=== PATIENT | male | born 2000 | race Two or more races ===

== ENCOUNTER → 2020-05-03 08:58 | Outpatient (BNVA) | payer OTHER, SELFPAY | PROVIDERS: PCP Physician Assistant; Referring Provider Physician Assistant; Visit Provider Dietitian, Registered | DX: Z76.89 Persons encountering health services in other specified circumstances (principal) ==

== ENCOUNTER 2020-06-14 17:36 | Emergency (ER) | payer OTHER, SELFPAY ==
--- NOTE | 2020-06-14 | XR_ITS ---
EXAMINATION: XR HAND, RIGHT CLINICAL INFORMATION: Question of glass foreign body in the fourth and fifth digit. Laceration. COMPARISON: None TECHNIQUE: PA, lateral, and oblique views of the right hand. FINDINGS: No radiopaque foreign body. The bones and soft tissues are normal. No fracture. Alignment is anatomic. Joint spaces are maintained. No erosions or soft tissue calcifications. XR/XR hand RT min 3V IMPRESSION: Normal right hand. There is no radiopaque foreign body.
[2020-06-14 17:41] VITALS: BP 128/70; PULSE 93; RESP 17; TEMP 36.6; O2SAT 96; BMI 39.5
--- NOTE | 2020-06-14 19:48 | ED.WOUNDLAC ---
HPI - Wound/Laceration General Chief Complaint: Wound/Laceration Stated Complaint: Finger lac Time Seen by Provider: 06/14/20 18:35 Source: patient Mode of arrival: ambulatory Limitations: no limitations History of Present Illness HPI narrative: States he was helping friend move a fish tank and cut the right 4th in finger on the edge of the fasting. Up-to-date on his tetanus vaccination which he got last year. Onset (ago): minute(s) Extremity Location: right: wrist (Fourth and 5th finger) Associated symptoms: pain Treatments prior to arrival: bandage Related Data Home Medications Medication Instructions Recorded Confirmed blood sugar diagnostic #10 ea 04/23/20 06/05/20 lancets 28 gauge #100 ea 04/23/20 06/05/20 metformin 1,000 mg tablet 1,000 mg PO BID 04/23/20 06/05/20 Previous Rx's Medication Instructions Recorded dulaglutide 1.5 mg/0.5 mL 1.5 mg SUBCUT QWEEK 28 Days #2 ml 04/23/20 subcutaneous pen injector flash glucose sensor #2 ea 04/23/20 insulin glargine 100 unit/mL (3 12 unit SUBCUT QPM 30 Days #3.6 ml 04/23/20 mL) subcutaneous pen pen needle, diabetic 32 gauge x #30 ea 05/03/20 ketoconazole 2 % topical cream 1 appl TOPICAL DAILY 30 Days #30 g 06/05/20 Allergies Allergy/AdvReac Type Severity Reaction Status Date / Time No Known Allergies Allergy Verified 06/14/20 17:41 [No Known Allergies*] Review of Systems Review of Systems: Constitutional: No Weight loss, No Fever, No Chills, No Night Sweats ENT/Mouth: No Hearing loss, No Ear Pain, No Nasal Congestion, No Sinus Pain, No Hoarseness, No sore throat Eyes: No Eye Pain, No Swelling, No Redness, No Foreign Body Cardiovascular: No Chest Pain, No SOB, No Dyspnea on Exertion, No Orthopnea, No Edema, No Palpitations Respiratory: No Cough, No Sputum, No Wheezing, No Smoke Exposure, No Dyspnea Gastrointestinal: No abdominal Pain Genitourinary: No Dysuria, No Urinary Frequency Musculoskeletal: No joint pain, No Myalgias, No Joint Swelling Skin: No Skin Lesions, No rash, as noted in HPI Neuro: No Weakness, no numbness, No Dizziness, No Headache Psych: No Social Issues Heme/Lymph: No Bruising, No Bleeding,No Lymphadenopathy Endocrine: No Polyuria, No Polydipsia, No Temperature Intolerance Yes all other systems are reviewed and are negative [facility] Past Medical History Medical History (Updated 06/14/20 @ 19:50 by Jonathan Frye NP) Adult BMI 40.0-44.9 kg/sq m Asthma, exercise induced Balanitis Morbid obesity due to excess calories Other obsessive-compulsive disorder Type 2 diabetes mellitus with hyperglycemia Surgical History (Updated 05/28/20 @ 08:04 by ROMELIA Esposito) No pertinent past surgical history Family History Family History Father No problems noted. Mother Diabetes mellitus Paternal Grandmother Diabetes mellitus Maternal Grandfather Diabetes mellitus Social History Social History Alcohol intake: never Smoking Status: Never smoker Smoked in Last 30 Days: No Use of substances other than those prescribed or required for medical reasons: No Advance Directives: No Advance Directives Information Provided: Yes Physical Exam Vital Signs: Vital Signs: Last Vital Signs Temp 98 F 06/14/20 17:41 Pulse 93 06/14/20 17:41 Resp 17 06/14/20 17:41 BP 128/70 06/14/20 17:41 Pulse Ox 96 06/14/20 17:41 Body Mass Index 39.5 Reviewed Const: General: cooperative and healthy appearing; No acute distress or intoxicated appearing Nutritional Appearance: average body habitus Orientation/consciousness: patient oriented x3 Chest: Chest palpation & inspection: normal inspection of the chest Resp: Effort & Inspection: normal respiratory effort Cardio: Jugular venous distension: no JVD Skin: General skin exam: no rashes or lesions noted Neuro: General: patient oriented x3 Extrem: General: Yes normal to inspection Hand/finger images: 1. 1.5 cm superficial laceration just to the adipose tissue. He is able to make a fist, flex/extend adduct and abduct fully. Neurovascularly intact. 2. Very superficial skin flap. Procedures Laceration Laceration 1: Site: other (Right 5th finger) Side (If applicable): right Size (cm): 1.5 Description: linear Depth: simple, single layer Local Anesthetic: lidocaine 1% Amount of anesthesia used (mL): 5 Pre-repair: wound explored Skin layer closed with: nylon Size (cm): 5-0 Number of sutures: 4 Technique: simple, interrupted Laceration 2: Side (If applicable): right Size (cm): 0.5 Description: flap Depth: simple, single layer Local Anesthetic: lidocaine 1% Amount of anesthesia used (mL): 2 Pre-repair: wound explored Skin layer closed with: nylon Size (cm): 5-0 Number of sutures: 1 Technique: simple, interrupted Subcutaneous layer closed with: chromic gut Size: 5-0 Number of sutures: 1 Technique: simple, interrupted MDM - Wound/Laceration Differential Diagnosis Differential diagnosis: Likely laceration, abrasion and avulsion of skin Medical Records Attestation: I reviewed the patient's medical records. Lab Data Attestation: I reviewed the patient's lab results. Discharge Plan Discharge Clinical Impression: Finger laceration Patient Disposition: Home, Self-Care Instructions: Finger Laceration (ED) Additional Instructions: Today you were evaluated for the laceration to the right 4th and 5th finger requiring localize number medication and suture repair Use finger splint for comfort And to mobilize the finger to allow further healing Keep site clean and dry for the 1st 48 hours and after you can wash with soap and water but do not submerge underwater Monitor for any signs of infection including redness, swelling, discharge, pain, fever if any these present returns emergency room right away otherwise return in 7 days for suture removal Thank you Prescriptions: No Action ketoconazole 2 % cream 1 appl topical DAILY 30 Days Qty: 30 RF: 1 (DME) pen needle, diabetic [BD Ultra-Fine Raegan Pen Needle] 32 gauge x 5/32 needle See Rx Instructions .ROUTE .MEDSUPPLY Qty: 30 RF: 11 (DME) FreeStyle Precision Peter Strips Strip See Rx Instructions strip .ROUTE .MEDSUPPLY Qty: 10 RF: 0 metformin 1,000 mg tablet 1,000 mg PO BID RF: 0 (DME) lancets 28 gauge misc See Rx Instructions lancet topical TID Qty: 100 RF: 0 Trulicity 1.5 mg/0.5 mL pen injector 1.5 mg subcut QWEEK 28 Days Qty: 2 RF: 2 (DME) FreeStyle Roe 14 Day Sensor Kit See Rx Instructions .ROUTE .MEDSUPPLY Qty: 2 RF: 11 Basaglar KwikPen U-100 Insulin 100 unit/mL (3 mL) insulin pen 12 unit subcut QPM 30 Days Qty: 3.6 RF: 3 Referrals: Eduardo Sheldon PA-C [Primary Care Provider] - 1 week (Suture removal) Jonathan Frye NP [Emergency Midlevel Provider] - 1 week (Suture removal)
[2020-06-14] MEDS: Lidocaine HCl 1 % MPF 5 ML VIAL 10 ML SUBCUT (20:01)
--- NOTE | 2020-06-14 20:06 | PC.NURSE ---
PT LAC TO RIGHT FINGER CLEANED AND SUTURED PER JUANITA FRIEDMAN. DSD APPLIED WITH FINGER SPLINT.
== END 2020-06-14 20:05 | disposition home or self-care (01) ==
PROVIDERS: Emergency Provider Internal Medicine; PCP Physician Assistant
DX: S61.214A Laceration without foreign body of right ring finger without damage to nail, initial encounter (principal); M79.644 Pain in right finger(s); W26.9XXA Contact with unspecified sharp object(s), initial encounter; Y93.9 Activity, unspecified; Y92.009 Unspecified place in unspecified non-institutional (private) residence as the place of occurrence of the external cause; Y99.9 Unspecified external cause status; Z79.899 Other long term (current) drug therapy
CPT/HCPCS: 12001; 73130; 99284

== ENCOUNTER → 2020-07-19 09:42 | Outpatient (BNVA) | payer OTHER, SELFPAY | PROVIDERS: PCP Physician Assistant; Visit Provider Nurse Practitioner Gerontology | DX: E11.65 Type 2 diabetes mellitus with hyperglycemia (principal); Z79.4 Long term (current) use of insulin; E66.01 Morbid (severe) obesity due to excess calories; Z68.41 Body mass index [BMI] 40.0-44.9, adult | CPT/HCPCS: 82947; 99212 ==

== ENCOUNTER 2021-01-03 07:36 | Outpatient (REF) | payer OTHER, SELFPAY ==
[2021-01-03 09:36] LABS: Hematocrit 43.9 % (42-52); Hemoglobin 14.1 g/dl (14.0-18.0); Mean Corpuscular HGB Conc 32.1 g/dl (31.0-36.0); Mean Corpuscular Hemoglobin 30.7 pg (27.0-33.0); Mean Corpuscular Volume 95.4 fL (80-98); Mean Platelet Volume 12.5 fL (9.4-12.4); Platelet Count 204 X10*3/uL (160-400); Red Cell Distribution Width 12.7 % (11.0-16.0); White Blood Count 8.9 X10*3/uL (4.8-10.8)
[2021-01-03 10:18] LABS: Alanine Aminotransferase 25 U/L (0-40); Albumin Level 4.3 g/dL (3.5-5.0); Alkaline Phosphatase 69 U/L (39-117); Anion Gap 12 (12-20); Aspartate Amino Transferase 22 U/L (5-37); Bilirubin Total 0.8 mg/dL (0.0-1.0); Blood Urea Nitrogen 20 mg/dL (9-16); Calcium 9.3 mg/dL (8.4-10.2); Carbon Dioxide 27 mmol/L (22-29); Chloride 106 mmol/L (96-108); Cholesterol 141 mg/dL; Estimated Glomerular Filt Rate > 60; Glucose Fasting 214 mg/dL (60-99); HDL Cholesterol 51 mg/dL; LDL Cholesterol Calculated 80 mg/dl; Potassium 4.5 mmol/L (3.3-5.1); Sodium 140 mmol/L (135-145); Total Protein 6.8 g/dL (6.5-8.0); Triglycerides 54 mg/dL
[2021-01-03 10:29] LABS: TSH reflex Free T4 0.68 uIU/mL (0.32-4.0)
== END 2021-01-03 07:37 | disposition home or self-care (01) ==
LOC: HO.LAB 07:36
PROVIDERS: Absent Provider Physician Assistant; PCP Physician Assistant; Visit Provider Nurse Practitioner Gerontology
DX: E11.65 Type 2 diabetes mellitus with hyperglycemia (principal); E66.01 Morbid (severe) obesity due to excess calories; Z68.36 Body mass index [BMI] 36.0-36.9, adult; B35.9 Dermatophytosis, unspecified; I10 Essential (primary) hypertension; Z79.4 Long term (current) use of insulin; Z71.3 Dietary counseling and surveillance
CPT/HCPCS: 36415; 80053; 80061; 82043; 82947; 84443; 85027; 99212

== ENCOUNTER 2021-04-13 07:39 | Emergency (ER) | payer OTHER, SELFPAY ==
[2021-04-13 07:51] VITALS: BP 124/70; PULSE 61; RESP 16; TEMP 36.4; O2SAT 100; BMI 32.1
[2021-04-13 09:06] VITALS: BP 110/67; PULSE 50; RESP 18; O2SAT 99
[2021-04-13 09:22] LABS: MANUAL DIFF FLAG NO
[2021-04-13 09:23] LABS: Basophils Percent Auto 0.3 % (0-2); Eosinophils Percent Auto 0.3 % (0-4); Hematocrit 44.2 % (42-52); Hemoglobin 14.8 g/dl (14.0-18.0); Imm Gran Abs Auto 0.07 X10*3/uL (0.00-0.03); Imm Gran Pct Auto 0.7 % (0.0-0.4); Lymphocytes Percent Auto 32.3 % (20-40); Mean Corpuscular HGB Conc 33.5 g/dl (31.0-36.0); Mean Corpuscular Hemoglobin 31.5 pg (27.0-33.0); Monocytes Absolute Auto 0.8 X10*3/uL (0.1-1.2); Monocytes Percent Auto 8.9 % (2-11); Neutrophils Absolute Auto 5.4 X10*3/uL (2.0-8.3); Neutrophils Percent Auto 57.5 % (45-73); Platelet Count 175 X10*3/uL (160-400); Red Cell Distribution Width 12.9 % (11.0-16.0); White Blood Count 9.3 X10*3/uL (4.8-10.8)
[2021-04-13 09:38] LABS: Alanine Aminotransferase 22 U/L (0-40); Albumin Level 4.3 g/dL (3.5-5.0); Alkaline Phosphatase 83 U/L (39-117); Anion Gap 11 (12-20); Aspartate Amino Transferase 16 U/L (5-37); Bilirubin Total 1.6 mg/dL (0.0-1.0); Blood Urea Nitrogen 15 mg/dL (9-16); Calcium 9.3 mg/dL (8.4-10.2); Carbon Dioxide 29 mmol/L (22-29); Chloride 104 mmol/L (96-108); Estimated Glomerular Filt Rate > 60; Glucose Random 253 mg/dL (60-115); Potassium 4.6 mmol/L (3.3-5.1); Sodium 139 mmol/L (135-145); Total Protein 6.8 g/dL (6.5-8.0)
--- NOTE | 2021-04-13 10:18 | ED.MALEGU ---
HPI - Male Genitourinary General Chief complaint: Urogenital-Male Stated complaint: genital pain Time Seen by Provider: 04/13/21 08:09 Source: patient Mode of arrival: ambulatory Limitations: no limitations History of Present Illness HPI Narrative: 20-year-old male with a past medical history of type 2 diabetes with hyperglycemia, obesity, exercise-induced asthma, obsessive-compulsive disorder and balanitis presenting to the ED with complaints worsening rash to his penis over the past few months worse within the past 2 days where he is having much more pain with urination due to the rash. He reports he is currently sexually active with 1 female for the past few months and he has had only 1 episode of unprotected intercourse. Although the patient reports the female who he is having intercourse with is providing oral intercourse for the patient without any protection. He does not believe he has an STD although would like to be tested for gonorrhea/chlamydia/syphilis and herpes. He denies any fevers, chills, nausea/vomiting, back pain, abdominal pain, urinary urgency/frequency, hematuria, abnormal penile discharge, diarrhea or constipation or any other symptoms complaints or concerns at this time. MD Complaint: other (Rash to penis) Onset (ago): month(s) (Months worsen the past 2 days) Duration: constant and progressively worsening Location: penis Severity: moderate Quality: burning Relieving factors: none Exacerbating factors: urination, palpation and sexual intercourse Associated symptoms: Reports rash and dysuria Related Data Sexually active: Yes Home Medications Medication Instructions Recorded Confirmed blood sugar diagnostic #10 ea 04/23/20 01/03/21 lancets 28 gauge #100 ea 04/23/20 01/03/21 Previous Rx's Medication Instructions Recorded pen needle, diabetic 32 gauge x #30 ea 05/03/20 (BD Ultra-Fine Raegan Pen Needle) ketoconazole 2 % topical cream 1 appl TOPICAL DAILY 30 Days #30 g 06/05/20 flash glucose sensor (FreeStyle #2 ea 07/19/20 Roe 14 Day Sensor) metformin 1,000 mg tablet 1,000 mg PO BID #180 tab 12/05/20 dulaglutide 3 mg/0.5 mL 3 mg SUBCUT QWEEK #2 ml 01/03/21 subcutaneous pen injector (Trulicity) dulaglutide 4.5 mg/0.5 mL 4.5 mg SUBCUT QWEEK #2 ml 01/03/21 subcutaneous pen injector (FlexScoreity) miconazole nitrate 2 % topical 1 appl TOPICAL DAILY #85 g 01/03/21 powder (Remedy Phytoplex Antifungal) terbinafine HCl 1 % topical cream 1 appl TOPICAL BID #15 g 01/03/21 (Athlete's Foot (terbinafine)) cephalexin 500 mg capsule 500 mg PO Q6H 10 Days #40 cap 04/13/21 clotrimazole-betamethasone 1 1 appl TOPICAL BID 28 Days #45 g 04/13/21 %-0.05 % topical cream fluconazole 150 mg tablet 150 mg PO Q3D #2 tab 04/13/21 (Diflucan) metronidazole 500 mg tablet 500 mg PO BID 7 Days #14 tab 04/13/21 Allergies Allergy/AdvReac Type Severity Reaction Status Date / Time No Known Allergies Allergy Verified 01/03/21 07:50 [No Known Allergies*] Review of Systems Review of Systems: Constitutional : No Weight loss, No Fever, No Chills, No Night Sweats, No Fatigue, NoMalaise ENT/Mouth: No ear pain, No sore throat, No Difficulty swallowing Cardiovascular : No Chest Pain, No SOB, No Dyspnea on Exertion, No Orthopnea, NoEdema, No Palpitations Respiratory : No Cough, No Sputum, No Wheezing, No Dyspnea Gastrointestinal : No Nausea, No Vomiting, No Diarrhea, + abdominal Pain, No Hematochezia, No Melena Genitourinary : Positive dysuria/rash to the penis, No testicular pain, No irregular bleeding, No Urinary Frequency, No Hematuria,No Urinary Incontinence, No Urgency, No Flank Pain Musculoskeletal : No joint pain, No Myalgias, No Joint Swelling Skin : No Skin Lesions, No rash Neuro : No Weakness, No Numbness, No Paresthesias, No Loss of Consciousness, NoDizziness, No Headache Psych : No Social Issues, Heme/Lymph: No Bruising, No Bleeding,No Lymphadenopathy Endocrine : No Polyuria, No Polydipsia, No Temperature Intolerance PATIENT DENIES ANY THOUGHTS OF STDS Yes all other systems are reviewed and are negative [facility] Past Medical History Attestation statement: The following information was validated with the patient. Medical History Asthma, exercise induced Balanitis Obesity due to excess calories Other obsessive-compulsive disorder Tinea Type 2 diabetes mellitus with hyperglycemia Surgical History No pertinent past surgical history Family History Family History Father No problems noted. Mother Diabetes mellitus Paternal Grandmother Diabetes mellitus Maternal Grandfather Diabetes mellitus Social History Social History Household Members: Spouse and Children Alcohol intake: never Patient Tobacco Use Status: Never used Tobacco Use of substances other than those prescribed or required for medical reasons: No Advance Directives: No Physical Exam Vital Signs: Vital Signs: Last Vital Signs Temp 97.6 F 04/13/21 07:51 Pulse 50 04/13/21 09:06 Resp 18 04/13/21 09:06 BP 110/67 04/13/21 09:06 Pulse Ox 99 04/13/21 09:06 Body Mass Index 32.1 vital signs have been reviewed as normal and appeared to be correct. Blood pressure normal. Heart rate normal. Respiration rate normal. Temperature normal. Oxygen saturation normal. Appearance: Alert. Oriented X3. No acute distress. Head: Normal external exam. Normocephalic. Atraumatic. Eyes: PERRLA. EOMI. Conjunctiva and sclera normal. Eyelids normal. ENT: Pharynx normal. Uvula midline. Moist mucous membranes. Neck: Normal inspection. Neck supple. FROM. No adenopathy. No meningeal signs. CVS: Normal heart rate and rhythm. Heart sound normal. No murmurs noted. Pulses normal throughout. Respiratory: No respiratory distress. Painless inspiration. Breath sounds normal. No wheezes/rales/rhonchi noted. Chest nontender. No accessory muscle usage noted or decreased air movement noted. Abdomen: Soft and nontender. Bowel sounds normal in all 4 quadrants. No distention noted. No organomegaly noted. No visible injury noted. : Chaperoned by LEOBARDO Cardona. Patient noted to have purulent exudates of the foreskin and glans penis with shallow ulceration/abrasions noted. Not consistent with paraphimosis or phimosis. The rest of the external exam is within normal limits. No masses/lumps/ecchymosis/edema/lacerations/vesicles/induration noted. No hernia noted. No inguinal lymphadenopathy noted. Penis free of discharge. The scrotum is normal. Testicles are both descended bilaterally and appear normal. No hydrocele or scrotal mass/swelling noted. No varicocele. Epididymides normal. No blue dot sign. Back: No CVA tenderness. Full range of motion noted. Skin: Skin warm and dry. Normal skin color. Normal skin turgor. No rashes/lesions/lacerations noted. Extremities: Extremities exhibit normal range of motion. Extremities nontender. Neuro: Oriented X 3. No motor deficit. No sensory deficit. Reflexes normal. Course Course Course Narrative: 8:30am - 20-year-old male with a past medical history of type 2 diabetes with hyperglycemia, obesity, exercise-induced asthma, obsessive-compulsive disorder and balanitis presenting to the ED with complaints worsening rash to his penis over the past few months worse within the past 2 days where he is having much more pain with urination due to the rash. He reports he is currently sexually active with 1 female for the past few months and he has had only 1 episode of unprotected intercourse. Although the patient reports the female who he is having intercourse with is providing oral intercourse for the patient without any protection. He does not believe he has an STD although would like to be tested for gonorrhea/chlamydia/syphilis and herpes. He does not want to be treated for any STDs at this time. On my exam it appears that patient has balanitis and would be consistent with his history of diabetes. This does not appear to be herpes. Plan: Labs including syphilis, gonorrhea/chlamydia urine, UA CC, herpes swab then re-evaluate. Reevaluation(s) Reevaluation #1: - labs return in patient's blood glucose level 253. Total bilirubin 1.6. Anion gap 11. UA revealed 500 glucose otherwise no evidence of UTI. Syphilis/gonorrhea/chlamydia/herpes swabs are still pending. Will DC home with treatment for balanitis along with instructions to return if any new or worsening symptoms to follow up with primary care provider/payment manager. Patient understands agrees with this plan. Time: 10:33 [facility] - Male Genitourinary Medical Records Attestation: I reviewed the patient's medical records. Lab Data Attestation: I reviewed the patient's lab results. Result diagrams: 04/13/21 09:15 04/13/21 09:15 Labs: Lab Results 04/13/21 04/13/21 Range/Units 09:15 09:15 WBC 9.3 (4.8-10.8) X10*3/uL RBC 4.70 (4.60-5.80) X10*6/uL Hgb 14.8 (14.0-18.0) g/dl Hct 44.2 (42-52) % MCV 94.0 (80-98) fL MCH 31.5 (27.0-33.0) pg MCHC 33.5 (31.0-36.0) g/dl RDW 12.9 (11.0-16.0) % Plt Count 175 (160-400) X10*3/uL MPV 12.0 (9.4-12.4) fL Immature Gran % (Auto) 0.7 H (0.0-0.4) % Neut % (Auto) 57.5 (45-73) % Lymph % (Auto) 32.3 (20-40) % [place] % (Auto) 8.9 (2-11) % Eos % (Auto) 0.3 (0-4) % Baso % (Auto) 0.3 (0-2) % Lymph # (Auto) 3.0 (1.2-4.9) X10*3/uL [place] # (Auto) 0.8 (0.1-1.2) X10*3/uL Eos # (Auto) 0.0 (0.0-0.4) X10*3/uL Baso # (Auto) 0.0 (0.0-0.2) X10*3/uL Abs Immat Gran (auto) 0.07 H (0.00-0.03) X10*3/uL Absolute Neuts (auto) 5.4 (2.0-8.3) X10*3/uL Absolute Nucleated RBC 0.000 (0.0-0.012) X10*3/uL Nucleated RBC % (auto) 0.0 (0.0-0.2) /100WBC Sodium 139 (135-145) mmol/L Potassium 4.6 (3.3-5.1) mmol/L Chloride 104 (96-108) mmol/L Carbon Dioxide 29 (22-29) mmol/L Anion Gap 11 L (12-20) BUN 15 (9-16) mg/dL Creatinine 1.05 (0.5-1.4) mg/dL Estim Creat Clear Calc 129.0 Estimated GFR > 60 Random Glucose 253 H (60-115) mg/dL Calcium 9.3 (8.4-10.2) mg/dL Total Bilirubin 1.6 H (0.0-1.0) mg/dL AST 16 (5-37) U/L ALT 22 (0-40) U/L Alkaline Phosphatase 83 D (39-117) U/L Total Protein 6.8 (6.5-8.0) g/dL Albumin 4.3 (3.5-5.0) g/dL Discharge Plan Discharge Clinical Impression: Balanitis Patient Disposition: Home, Self-Care Instructions: Kajal (ED) Prescriptions: New clotrimazole-betamethasone 1-0.05 % cream 1 appl topical BID 28 Days Qty: 45 RF: 3 cephalexin 500 mg capsule 500 mg PO Q6H 10 Days Qty: 40 RF: 0 metronidazole 500 mg tablet 500 mg PO BID 7 Days Qty: 14 RF: 0 fluconazole [Diflucan] 150 mg tablet 150 mg PO Q3D Qty: 2 RF: 0 No Action metformin 1,000 mg tablet 1,000 mg PO BID Qty: 180 RF: 2 ketoconazole 2 % cream 1 appl topical DAILY 30 Days Qty: 30 RF: 1 (DME) pen needle, diabetic [BD Ultra-Fine Raegan Pen Needle] 32 gauge x 5/32 needle See Rx Instructions .ROUTE .MEDSUPPLY Qty: 30 RF: 11 (DME) FreeStyle Roe 14 Day Sensor Kit See Rx Instructions .ROUTE .MEDSUPPLY Qty: 2 RF: 11 Trulicity 3 mg/0.5 mL pen injector 3 mg subcut QWEEK Qty: 2 RF: 0 Trulicity 4.5 mg/0.5 mL pen injector 4.5 mg subcut QWEEK Qty: 2 RF: 2 terbinafine HCl [Athlete's Foot (terbinafine)] 1 % cream 1 appl topical BID Qty: 15 RF: 1 Remedy Phytoplex Antifungal 2 % powder 1 appl topical DAILY Qty: 85 RF: 1 (DME) FreeStyle Precision Peter Strips Strip See Rx Instructions strip .ROUTE .MEDSUPPLY Qty: 10 RF: 0 (DME) lancets 28 gauge misc See Rx Instructions lancet topical TID Qty: 100 RF: 0 Referrals: Eduardo Sheldon PA-C [Primary Care Provider] - 2 days Lance Davalos III, MD [Physician] - 2 days Stand Alone Forms: Work/School Release Print Language: Mosotho
[2021-04-13 10:30] LABS: Appearance Urine CLEAR; Color Urine YELLOW; Glucose Urine UA 500 MG/DL (NEG); Leukocyte Esterase Urine NEG (NEG); Nitrite Urine NEG (NEG); PH 6.5 (5.0-8.0); Urine Blood NEG (NEG); Urine Ketones 5 MG/DL (NEG); Urine Protein NEG (NEG-TRACE)
[2021-04-14 00:53] LABS: CT PCR NOT DETECTED (Not Detect.); NG PCR NOT DETECTED (Not Detect.)
[2021-04-14 09:29] LABS: Syphilis Screen Nonreactive (Nonreactive)
== END 2021-04-13 11:23 | disposition home or self-care (01) ==
PROVIDERS: Physician Assistant Medical; Emergency Provider Emergency Medicine; PCP Physician Assistant
DX: N48.1 Balanitis (principal); E11.9 Type 2 diabetes mellitus without complications; Z79.4 Long term (current) use of insulin; Z20.2 Contact with and (suspected) exposure to infections with a predominantly sexual mode of transmission
CPT/HCPCS: 36415; 80053; 81003; 85025; 86780; 87255; 87491; 87591; 99283; 99284

== ENCOUNTER → 2021-04-17 07:36 | Outpatient (BNVA) | payer OTHER, SELFPAY | PROVIDERS: PCP Physician Assistant; Visit Provider Nurse Practitioner Gerontology | DX: E11.65 Type 2 diabetes mellitus with hyperglycemia (principal); E66.01 Morbid (severe) obesity due to excess calories; Z79.4 Long term (current) use of insulin; Z68.36 Body mass index [BMI] 36.0-36.9, adult | CPT/HCPCS: 82947 ==

== ENCOUNTER 2021-05-05 18:58 | Emergency (ER) | payer OTHER, SELFPAY ==
--- NOTE | ~2021-05-05 | XR_ITS ---
EXAMINATION: XR CHEST CLINICAL INFORMATION: Cough. Question pneumonia. COMPARISON: None TECHNIQUE: 2 views of the chest were obtained. FINDINGS: The lungs are clear. The cardiomediastinal silhouette is normal in size. There is no pleural effusion or pneumothorax. No acute osseous abnormality. XR/XR chest 2V IMPRESSION: No acute cardiopulmonary findings.
[2021-05-05 19:12] VITALS: BP 128/79; PULSE 114; RESP 20; TEMP 38.4; O2SAT 97; BMI 36.1
[2021-05-05 20:12] LABS: Influenza A PCR NEGATIVE (Negative); Influenza B PCR NEGATIVE (Negative); Resp Syncy Virus RNA Qual PCR NEGATIVE (Negative); SARS COV2 PCR INHOUSE NEGATIVE (Negative)
--- NOTE | 2021-05-05 20:13 | ED_ITS ---
HPI - URI/Sore Throat General Chief Complaint: Upper Respiratory Symptoms Stated Complaint: cough, congestion Time Seen by Provider: 05/05/21 20:13 Source: patient Mode of arrival: ambulatory Limitations: no limitations History of Present Illness HPI Narrative: Patient complaining of cough for last few days already been walks and against COVID also complaining of headache fatigue low-grade fever and nasal congestion child was positive for metapneumovirus Related Data Home Medications Medication Instructions Recorded Confirmed blood sugar diagnostic #10 ea 04/23/20 01/03/21 lancets 28 gauge #100 ea 04/23/20 04/17/21 Previous Rx's Medication Instructions Recorded pen needle, diabetic 32 gauge x #30 ea 05/03/20 (BD Ultra-Fine Raegan Pen Needle) ketoconazole 2 % topical cream 1 appl TOPICAL DAILY 30 Days #30 g 06/05/20 flash glucose sensor (FreeStyle #2 ea 07/19/20 Roe 14 Day Sensor) metformin 1,000 mg tablet 1,000 mg PO BID #180 tab 12/05/20 miconazole nitrate 2 % topical 1 appl TOPICAL DAILY #85 g 01/03/21 powder (Remedy Phytoplex Antifungal) terbinafine HCl 1 % topical cream 1 appl TOPICAL BID #15 g 01/03/21 (Athlete's Foot (terbinafine)) cephalexin 500 mg capsule 500 mg PO Q6H 10 Days #40 cap 04/13/21 clotrimazole-betamethasone 1 1 appl TOPICAL BID 28 Days #45 g 04/13/21 %-0.05 % topical cream fluconazole 150 mg tablet 150 mg PO Q3D #2 tab 04/13/21 (Diflucan) metronidazole 500 mg tablet 500 mg PO BID 7 Days #14 tab 04/13/21 dulaglutide 1.5 mg/0.5 mL 1.5 mg SUBCUT QWEEK 28 Days #2 ml 04/17/21 subcutaneous pen injector (Trulicity) albuterol sulfate 90 mcg/actuation 2 puff INHALATION Q4-6H PRN #8.5 g 05/05/21 aerosol inhaler (ProAir HFA) azithromycin 250 mg tablet 250 mg PO DAILY 4 Days #4 tab 05/05/21 (Zithromax Z-Fernando) codeine 10 mg-guaifenesin 100 mg/5 10 ml PO Q4-6H PRN #237 ml 05/05/21 mL oral liquid prednisone 20 mg tablet 40 mg PO DAILY #10 tab 05/05/21 Allergies Allergy/AdvReac Type Severity Reaction Status Date / Time No Known Allergies Allergy Verified 01/03/21 07:50 [No Known Allergies*] Review of Systems Review of Systems: Yes all other systems are reviewed and are negative REPLACED BY [facility] Past Medical History Medical History Asthma, exercise induced Balanitis Obesity due to excess calories Other obsessive-compulsive disorder Tinea Type 2 diabetes mellitus with hyperglycemia Surgical History No pertinent past surgical history Family History Family History Father No problems noted. Mother Diabetes mellitus Paternal Grandmother Diabetes mellitus Maternal Grandfather Diabetes mellitus Social History Social History Household Members: Spouse and Children Alcohol intake: never Patient Tobacco Use Status: Never used Tobacco Advance Directives: No Advance Directives Information Provided: Yes Physical Exam Vital Signs: Vital Signs: Last Vital Signs Temp 101.2 F H 05/05/21 19:12 Pulse 114 H 05/05/21 19:12 Resp 20 05/05/21 19:12 BP 128/79 05/05/21 19:12 Pulse Ox 97 05/05/21 19:12 Body Mass Index 36.1 Appearance: Alert. Oriented X3. No acute distress. Eyes: PERRLA, No Nystagmus ENT: Pharynx normal. Oral Mucosa moist Neck: Normal inspection. Neck supple. CVS: Normal heart rate and rhythm. Pulses normal. Respiratory: No respiratory distress. Equal air entry bilateral, no wheezing/rales/rhonchi Abdomen: Soft and nontender. Bowel sounds are present, no mass palpable, no CVA tenderness Skin: Skin warm and dry. Normal skin color. Normal skin turgor. Extremities: No lower extremity edema. No calf tenderness Neuro: Oriented X 3. No motor deficit. No sensory deficit.No cerebellar signs , cranial nerves II-XII intact MDM - URI/Sore Throat MDM Narrative Medical decision making narrative: Chest x-ray negative Lab Data Labs: Lab Results 05/05/21 Range/Units 19:19 Influenza Type A (PCR) NEGATIVE (Negative) Influenza Type B (PCR) NEGATIVE (Negative) RSV RNA Qual (PCR) NEGATIVE (Negative) SARS-CoV-2 RNA (RT-PCR) NEGATIVE (Negative) Discharge Plan Discharge Clinical Impression: Bronchitis Patient Disposition: Home, Self-Care Instructions: Acute Bronchitis (ED) Additional Instructions: Use inhaler as advised Prednisone and antibiotic as prescribed Cough syrup for severe cough Rest at home Prescriptions: New codeine-guaifenesin 10-100 mg/5 mL liquid 10 ml PO Q4-6H PRN (Reason: cough) Qty: 237 RF: 0 azithromycin [Zithromax Z-Fernando] 250 mg tablet 250 mg PO DAILY 4 Days Qty: 4 RF: 0 prednisone 20 mg tablet 40 mg PO DAILY Qty: 10 RF: 0 albuterol sulfate [ProAir HFA] 90 mcg/actuation HFA aerosol inhaler 2 puff inhalation Q4-6H PRN (Reason: shortness of breath or wheezing) Qty: 8.5 RF: 0 No Action metformin 1,000 mg tablet 1,000 mg PO BID Qty: 180 RF: 2 clotrimazole-betamethasone 1-0.05 % cream 1 appl topical BID 28 Days Qty: 45 RF: 3 cephalexin 500 mg capsule 500 mg PO Q6H 10 Days Qty: 40 RF: 0 metronidazole 500 mg tablet 500 mg PO BID 7 Days Qty: 14 RF: 0 fluconazole [Diflucan] 150 mg tablet 150 mg PO Q3D Qty: 2 RF: 0 ketoconazole 2 % cream 1 appl topical DAILY 30 Days Qty: 30 RF: 1 (DME) pen needle, diabetic [BD Ultra-Fine Raegan Pen Needle] 32 gauge x 5/32 needle See Rx Instructions .ROUTE .MEDSUPPLY Qty: 30 RF: 11 (DME) FreeStyle Roe 14 Day Sensor Kit See Rx Instructions .ROUTE .MEDSUPPLY Qty: 2 RF: 11 terbinafine HCl [Athlete's Foot (terbinafine)] 1 % cream 1 appl topical BID Qty: 15 RF: 1 Remedy Phytoplex Antifungal 2 % powder 1 appl topical DAILY Qty: 85 RF: 1 Trulicity 1.5 mg/0.5 mL pen injector 1.5 mg subcut QWEEK 28 Days Qty: 2 RF: 6 (DME) FreeStyle Precision Peter Strips Strip See Rx Instructions strip .ROUTE .MEDSUPPLY Qty: 10 RF: 0 (DME) lancets 28 gauge misc See Rx Instructions lancet topical TID Qty: 100 RF: 0 Stand Alone Forms: Work/School Release
[2021-05-05] MEDS: guaiFEN/Codeine SF 200/20/10ML 10 ML LIQUID PO (21:35)
[2021-05-05] MEDS: Azithromycin 500 MG TABLET PO (21:35)
[2021-05-05] MEDS: predniSONE 20 MG TABLET 40 MG PO (21:36)
[2021-05-05] MEDS: Albuterol Sulfate 90 MCG 8 GM INHALER 4 PUFF INHALE (22:00)
== END 2021-05-05 22:13 | disposition home or self-care (01) ==
PROVIDERS: Emergency Provider Internal Medicine; PCP Physician Assistant
DX: J40 Bronchitis, not specified as acute or chronic (principal); E11.9 Type 2 diabetes mellitus without complications; Z20.822 Contact with and (suspected) exposure to COVID-19
CPT/HCPCS: 0241U; 36415; 71046; 99284

== ENCOUNTER → 2021-05-16 09:40 | Outpatient (BNVA) | payer OTHER, SELFPAY | PROVIDERS: PCP Physician Assistant; Visit Provider Dietitian, Registered | DX: E66.01 Morbid (severe) obesity due to excess calories (principal); Z79.4 Long term (current) use of insulin; Z68.36 Body mass index [BMI] 36.0-36.9, adult | CPT/HCPCS: 97803 ==

== ENCOUNTER 2021-07-07 13:53 | Outpatient (REF) | payer OTHER, SELFPAY ==
[2021-07-07 15:01] LABS: Binax Internal Control QC Valid; Binax Lot number: 9864; Binax Now Covid-19 Ag Negative (Negative)
== END 2021-07-07 13:54 | disposition home or self-care (01) ==
LOC: HO.LAB 13:53
PROVIDERS: Visit Provider Internal Medicine
DX: Z20.822 Contact with and (suspected) exposure to COVID-19 (principal)
CPT/HCPCS: 36415; C9803

== ENCOUNTER → 2021-08-07 08:06 | Outpatient (BNVA) | payer OTHER, SELFPAY | PROVIDERS: PCP Physician Assistant; Visit Provider Nurse Practitioner Gerontology | DX: E11.65 Type 2 diabetes mellitus with hyperglycemia (principal); E66.01 Morbid (severe) obesity due to excess calories; Z79.4 Long term (current) use of insulin; Z68.36 Body mass index [BMI] 36.0-36.9, adult | CPT/HCPCS: 82947; 83036; 99212 ==

== ENCOUNTER → 2021-08-15 13:04 | Outpatient (BNVA) | payer OTHER, SELFPAY | PROVIDERS: PCP Physician Assistant; Visit Provider Dietitian, Registered | DX: E11.65 Type 2 diabetes mellitus with hyperglycemia (principal); E66.01 Morbid (severe) obesity due to excess calories; Z79.4 Long term (current) use of insulin | CPT/HCPCS: 97803 ==

== ENCOUNTER → 2021-11-14 09:25 | Outpatient (BNVA) | payer OTHER, SELFPAY | PROVIDERS: PCP Physician Assistant; Visit Provider Dietitian, Registered | DX: Z13.89 Encounter for screening for other disorder (principal) ==

== ENCOUNTER → 2021-11-18 10:43 | Outpatient (BNVA) | payer OTHER, SELFPAY | PROVIDERS: PCP Physician Assistant; Visit Provider Dietitian, Registered | DX: E11.65 Type 2 diabetes mellitus with hyperglycemia (principal); Z79.4 Long term (current) use of insulin | CPT/HCPCS: 97803 ==

== ENCOUNTER 2021-12-12 06:03 | Emergency (ER) | payer OTHER, SELFPAY ==
[2021-12-12 06:17] VITALS: BP 132/83; PULSE 55; RESP 18; TEMP 36.4; O2SAT 100
[2021-12-12 06:25] VITALS: BP 132/83; PULSE 55; RESP 18; TEMP 36.4; O2SAT 100; BMI 35.4
--- NOTE | 2021-12-12 06:50 | ED.MALEGU ---
HPI - Male Genitourinary General Chief complaint: Urogenital-Male Stated complaint: ?groin pain Time Seen by Provider: 12/12/21 06:50 Source: patient Mode of arrival: ambulatory Limitations: no limitations History of Present Illness HPI Narrative: dysuria with urination with pain at the end of his penis, Denies hematuria and some dark urine. Denies history of STDs. No new sexual partner, no STD complaints from the partner. MD Complaint: dysuria Onset (ago): week(s) Duration: intermittent Location: penis Severity: mild Quality: burning Associated symptoms: Reports denies other symptoms Related Data Home Medications Medication Instructions Recorded Confirmed blood sugar diagnostic #10 ea 04/23/20 05/08/21 Previous Rx's Medication Instructions Recorded metformin 1,000 mg tablet 1,000 mg PO BID #180 tabs 12/05/20 clotrimazole-betamethasone 1 1 appl topical BID balanitis 4 04/13/21 %-0.05 % topical cream weeks #45 grams albuterol sulfate 90 mcg/actuation 2 puff inhalation Q4-6H PRN 05/05/21 aerosol inhaler (ProAir HFA) shortness of breath or wheezing #8.5 grams azithromycin 250 mg tablet 250 mg PO DAILY 4 days #4 tabs 05/05/21 (Zithromax Z-Fernando) prednisone 20 mg tablet 40 mg PO DAILY #10 tabs 05/05/21 guaifenesin 200 mg/5 mL oral liquid 200 - 400 mg (5 - 10 mL) PO Q6H 05/08/21 PRN cough #118 mL pseudoephedrine HCl 60 mg tablet 60 mg PO Q6H PRN nasal congestion 05/08/21 #30 tabs flash glucose sensor (FreeStyle #2 ea 08/05/21 Roe 14 Day Sensor) dulaglutide 3 mg/0.5 mL 3 mg (0.5 mL) subcut QWEEK 28 days 08/07/21 subcutaneous pen injector #2 mL (Trulicity) insulin degludec 200 unit/mL (3 20 unit (0.1 mL) subcut BEDTIME #9 08/07/21 mL) subcutaneous pen (Tresiba mL FlexTouch U-200 insulin) pen needle, diabetic 32 gauge x #30 ea 11/18/21 (BD Raegan 2nd Gen Pen Needle) blood sugar diagnostic (FreeStyle #100 ea 11/20/21 Lite Strips) blood-glucose meter (FreeStyle #1 ea 11/20/21 Lite Meter) lancets 28 gauge (FreeStyle #100 ea 11/20/21 Lancets) naproxen 500 mg tablet (Naprosyn) 500 mg PO BID #20 tabs 12/12/21 Allergies Allergy/AdvReac Type Severity Reaction Status Date / Time No Known Allergies Allergy Verified 08/07/21 08:29 [No Known Allergies*] Review of Systems Constitutional: Constitutional: Reports no additional constitutional complaints Eyes: Eyes: Reports no additional eye complaints ENT: Denies dizziness Cardiovascular: Cardiovascular: Reports no additional cardiovascular complaints Respiratory: Respiratory: Reports as per HPI Gastrointestinal: Gastrointestinal: Reports no additional gastrointestinal complaints Musculoskeletal: Musculoskeletal: Reports no additional musculoskeletal complaints Integumentary/Breasts: Skin/Breast: Denies rash Neurologic: Reports system reviewed and no additional complaints, except as documented, Denies dizziness and Denies Sensory deficit (Neuro) Psychiatric: Psychiatric: Denies anxiety [facility] Past Medical History Medical History Asthma, exercise induced Balanitis Obesity due to excess calories Other obsessive-compulsive disorder Tinea Type 2 diabetes mellitus with hyperglycemia Surgical History No pertinent past surgical history Family History Family History Father No problems noted. Mother Diabetes mellitus Paternal Grandmother Diabetes mellitus Maternal Grandfather Diabetes mellitus Social History Social History Household Members: Spouse and Children Housing: Apartment Alcohol intake: current Alcohol intake frequency: a few times a week Alcohol type: beer Patient Tobacco Use Status: Never used Tobacco e-Cigarette/Vaping Use: Never Used Second Hand Smoke Exposure: No Advance Directives: No Advance Directives Information Provided: Yes service: No Current occupational status: employed Cognitive needs: No Hearing needs: No Vision needs: No Physical Exam Vital Signs: Vital Signs: Last Vital Signs Temp 97.6 F 12/12/21 06:25 Pulse 55 12/12/21 06:25 Resp 18 12/12/21 06:25 BP 132/83 12/12/21 06:25 Pulse Ox 100 12/12/21 06:25 O2 Del Method 12/12/21 06:25 BMI result Body Mass Index 35.4 Const: General: healthy appearing Nutritional Appearance: average body habitus Orientation/consciousness: oriented to person and patient oriented x3 Limitations: no limitations HEENT: Head: Yes normal to inspection Ears: external ears normal General nose exam: Normal external nose present Mouth: Normal oral and palatal mucosa present and oropharynx normal Throat: Yes posterior oropharynx normal Eyes: General: appearance normal, both eyes and all related structures Neck: Other: supple Neck: Yes normal visual inspection Chest: Chest palpation & inspection: normal inspection of the chest Resp: Auscultation: clear to auscultation bilaterally Cardio: Jugular venous distension: no JVD Rate: regular rate Rhythm: regular rhythm Heart sounds: S1 normal heart sound present and S2 normal heart sound present GI: Inspection: Yes normal to inspection Palpation (GI): Soft to palpation, nontender and No hepatosplenomegaly present Auscultation: normal bowel sounds : General: Yes no CVA tenderness Back/Spine/Pelvis: Back: no CVA tenderness Skin: General skin exam: no rashes or lesions noted Neuro: General: oriented to person and patient oriented x3 Cranial nerves: Yes CN's II-XII intact bilaterally Motor exam (neuro): 5/5 motor strength present throughout Sensory Exam: No Sensory deficit (Neuro) Extrem: General: Yes normal to inspection Psych: Appearance: grossly normal Course Reevaluation(s) Reevaluation #1: no active UTI, GC Chlamydia pending will dc on NSAIds for his knee Time: 09:09 [facility] - Male Genitourinary Lab Data Labs: Lab Results 12/12/21 Range/Units 07:36 Urine Color YELLOW Urine Appearance CLEAR Urine pH 6.0 (5.0-8.0) Ur Specific [place] >= 1.030 H (1.005-1.025) Urine Protein NEG (NEG-TRACE) MG/DL Urine Glucose (UA) NEG (NEG) MG/DL Urine Ketones NEG (NEG) MG/DL Urine Blood NEG (NEG) Urine Nitrite NEG (NEG) Ur Leukocyte Esterase NEG (NEG) Discharge Plan Discharge Clinical Impression: Dysuria, Knee pain Patient Disposition: Home, Self-Care Instructions: Dysuria (ED), Knee Pain (ED) Prescriptions: New naproxen [Naprosyn] 500 mg tablet 500 mg PO BID Qty: 20 0RF No Action metformin 1,000 mg tablet 1,000 mg PO BID Qty: 180 2RF (DME) FreeStyle Roe 14 Day Sensor Kit See Rx Instructions .ROUTE .MEDSUPPLY Qty: 2 11RF Rx Instructions: As directed (DME) pen needle, diabetic [BD Raegan 2nd Gen Pen Needle] 32 gauge x 5/32 needle See Rx Instructions .Route Qty: 30 11RF Rx Instructions: As directed once daily (DME) blood-glucose meter [FreeStyle Lite Meter] Kit See Rx Instructions .ROUTE .MEDSUPPLY Qty: 1 0RF Rx Instructions: As directed (DME) FreeStyle Lite Strips Strip See Rx Instructions .ROUTE .MEDSUPPLY Qty: 100 11RF Rx Instructions: As directed three times a day (DME) lancets [FreeStyle Lancets] 28 gauge misc See Rx Instructions .ROUTE .MEDSUPPLY Qty: 100 11RF Rx Instructions: Three times a day azithromycin [Zithromax Z-Fernando] 250 mg tablet 250 mg PO DAILY 4 Days Qty: 4 0RF Rx Instructions: start on day 2 of therapy prednisone 20 mg tablet 40 mg PO DAILY Qty: 10 0RF albuterol sulfate [ProAir HFA] 90 mcg/actuation HFA aerosol inhaler 2 puff inhalation Q4-6H PRN (Reason: shortness of breath or wheezing) Qty: 8.5 0RF clotrimazole-betamethasone 1-0.05 % cream 1 appl topical BID 28 Days Qty: 45 3RF guaifenesin 200 mg/5 mL liquid 200 - 400 mg PO Q6H PRN (Reason: cough) Qty: 118 0RF pseudoephedrine HCl 60 mg tablet 60 mg PO Q6H PRN (Reason: nasal congestion) Qty: 30 0RF (DME) FreeStyle Precision Peter Strips Strip See Rx Instructions .ROUTE .MEDSUPPLY Qty: 10 Rx Instructions: As directed Trulicity 3 mg/0.5 mL pen injector 3 mg subcut QWEEK 28 Days Qty: 2 6RF Tresiba FlexTouch U-200 200 unit/mL (3 mL) insulin pen 20 unit subcut BEDTIME Qty: 9 1RF Referrals: Nashotah,Eduardo, PA-C [Primary Care Provider] - 1 week
[2021-12-12 07:44] LABS: Appearance Urine CLEAR; Color Urine YELLOW; Glucose Urine UA NEG (NEG); Leukocyte Esterase Urine NEG (NEG); Nitrite Urine NEG (NEG); Specific Gravity - Urine >= 1.030 (1.005-1.025); Urine Blood NEG (NEG); Urine Ketones NEG (NEG); Urine Protein NEG (NEG-TRACE)
[2021-12-12 09:11] LABS: Glucose, Whole Blood 147 mg/dL (60-115)
[2021-12-12 11:01] LABS: CT PCR NOT DETECTED (Not Detect.); NG PCR NOT DETECTED (Not Detect.)
== END 2021-12-12 09:41 | disposition home or self-care (01) ==
PROVIDERS: Emergency Provider Emergency Medicine; PCP Physician Assistant
DX: R30.0 Dysuria (principal); M25.569 Pain in unspecified knee; E11.9 Type 2 diabetes mellitus without complications
CPT/HCPCS: 81003; 82947; 87491; 87591; 99283

== ENCOUNTER → 2022-08-18 07:52 | Outpatient (BNVA) | payer OTHER, SELFPAY | PROVIDERS: PCP Physician Assistant; Visit Provider Internal Medicine Endocrinology, Diabetes & Metabolism | DX: E11.65 Type 2 diabetes mellitus with hyperglycemia (principal); Z79.4 Long term (current) use of insulin | CPT/HCPCS: 82947; 96372; 99212; J1815 ==

== ENCOUNTER 2022-08-18 10:13 | Emergency (ER) | payer OTHER, SELFPAY ==
[2022-08-18 10:16] VITALS: BP 126/80; PULSE 76; RESP 18; TEMP 36.6; O2SAT 99; BMI 35.6
[2022-08-18 10:38] LABS: Glucose, Whole Blood 386 mg/dL (60-115)
--- NOTE | 2022-08-18 10:51 | ED_ITS ---
HPI - General Adult General Chief complaint: General Medical Stated complaint: HBS sent from Endocrinology Time Seen by Provider: 08/18/22 10:31 Source: patient and old records reviewed Mode of arrival: ambulatory Limitations: no limitations History of Present Illness HPI narrative: 22 yo male with history of DM2 diagnosed in 2019 who presents to the ER from Endocrinology office for evaluation of hyperglycemia. He reports to Dr. Blevins that he was non-compliant and not taking any of his prescribed medications i ncluding: metformin 1000 mg bid, trulicity 4.5mg/week, and tresiba 20 units daily. His glucose in the office today was 448. He was given 10 units of humalog and his glucose increased to 465. On arrival to the ER his POC was 386. He states he does not take his medications simply because he keeps forgetting to take them. He admits to polydipsia and polyuria. No N/V/D or abdominal pain. No fever, ch ills or chest pain. MD complaint: hyperglycemia Onset (ago): unknown Severity: severe Pain Consistency: constant Relieving factors: none Exacerbating factors: none Treatments prior to arrival: none Related Data Home Medications Medication Instructions Recorded Confirmed blood sugar diagnostic #10 ea 04/23/20 08/18/22 Previous Rx's Medication Instructions Recorded albuterol sulfate 90 mcg/actuation 2 puff inhalation Q4-6H PRN 05/05/21 aerosol inhaler (ProAir HFA) shortness of breath or wheezing #8.5 grams azithromycin 250 mg tablet 250 mg PO DAILY 4 days #4 tabs 05/05/21 (Zithromax Z-Fernando) prednisone 20 mg tablet 40 mg PO DAILY #10 tabs 05/05/21 guaifenesin 200 mg/5 mL oral liquid 200 - 400 mg (5 - 10 mL) PO Q6H 05/08/21 PRN cough #118 mL pseudoephedrine HCl 60 mg tablet 60 mg PO Q6H PRN nasal congestion 05/08/21 #30 tabs blood sugar diagnostic (FreeStyle #100 ea 11/20/21 Lite Strips) lancets 28 gauge (FreeStyle #100 ea 11/20/21 Lancets) naproxen 500 mg tablet (Naprosyn) 500 mg PO BID #20 tabs 12/12/21 albendazole 200 mg tablet 400 mg PO Q2W 2 doses #4 tabs 12/30/21 clotrimazole 1 % topical cream 1 appl topical BID 4 weeks #30 08/13/22 (Athlete's Foot (clotrimazole)) grams blood-glucose meter (FreeStyle #1 ea 08/18/22 Lite Meter kit) dulaglutide 4.5 mg/0.5 mL 4.5 mg (0.5 mL) subcut QWEEK #2 mL 08/18/22 subcutaneous pen injector (Trulicity) flash glucose sensor (FreeStyle #2 ea 08/18/22 Roe 2 Sensor kit) insulin degludec 200 unit/mL (3 20 unit (0.1 mL) subcut BEDTIME #9 08/18/22 mL) subcutaneous pen (Tresiba mL FlexTouch U-200 insulin) metformin 1,000 mg tablet 1,000 mg PO BID #180 tabs 08/18/22 pen needle, diabetic 32 gauge x #30 ea 08/18/2232 (BD Raegan 2nd Gen Pen Needle) Allergies Allergy/AdvReac Type Severity Reaction Status Date / Time No Known Allergies Allergy Verified 08/18/22 10:21 [No Known Allergies*] Review of Systems Review of Systems: Yes all other systems are reviewed and are negative [facility] Past Medical History Medical History (Updated 08/18/22 @ 12:41 by SHELBIE Grover) Asthma, exercise induced Balanitis Obesity due to excess calories Other obsessive-compulsive disorder Tinea Tinea pedis Type 2 diabetes mellitus with hyperglycemia Surgical History No pertinent past surgical history Family History Family History Father No problems noted. Mother Diabetes mellitus Paternal Grandmother Diabetes mellitus Maternal Grandfather Diabetes mellitus Social History Social History Household Members: Spouse and Children Housing: Apartment Alcohol intake: current Alcohol intake frequency: holidays/special occasions only Alcohol type: beer Patient Tobacco Use Status: Never used Tobacco e-Cigarette/Vaping Use: Never Used Second Hand Smoke Exposure: No Advance Directives: No Advance Directives Information Provided: No service: No Current occupational status: employed Cognitive needs: No Hearing needs: No Vision needs: No Physical Exam ED Vital Signs: Vital Signs - 24 hr 08/18/22 10:16 Temperature 97.9 F Pulse Rate 76 Respiratory Rate 18 Blood Pressure 126/80 Pulse Oximetry 99 Oxygen Delivery Method Room Air BMI result Body Mass Index 35.6 Appearance: Alert. Oriented X3. No acute distress. Eyes: Pupils equal, round and reactive to light. ENT: Pharynx normal. Neck: Normal inspection. Neck supple. CVS: Normal heart rate and rhythm. Pulses normal. Respiratory: No respiratory distress. Breath sounds normal. Abdomen: Soft and nontender. +BS x4 Skin: Skin warm and dry. Normal skin color. Normal skin turgor. No rashes. Extremities: No lower extremity edema. Neuro: Oriented X 3. No motor deficit. No sensory deficit. Course Course Course Narrative: 22 yo male with uncontrolled DM2 with medicine noncompliance presenting with hyperglycemia. Does not appear to be in DKA or HHS. Labs pending. IV established and IVF started Reevaluation(s) Reevaluation #1: normal anion gap. A1c >14%. We discussed the importance of multiple complications from uncontrolled DM. He is going to set an alarm on his phone for 9am and 9pm to take his medications. he will follow up with Endo and his PCP. Stable for d/c home. Medications Administered Discontinued Medications Generic Name Dose Route Start Last Admin Trade Name Freq PRN Reason Stop Dose Admin Sodium Chloride 1,000 mls @ 999 mls/hr 08/18/22 10:45 08/18/22 12:07 Ns IVCONT 08/18/22 11:45 Infused .Q1H1M FLORIDALMA Infusion Medical Decision Making Differential Diagnosis Differential Diagnoses: The differential diagnosis associated with the presentation includes medication noncompliance, uncontrolled DM w/ hyperglycemia, DKA, HHS, less likely infection or [place] Admission/Observation Consideration of admission/observation: Escalation of care including admission/observation considered Lab Data [facility] Lab Attestation statement: I reviewed the patient's lab results. hyperglycemia, no anion gap metabolic acidosis 08/18/22 10:52 08/18/22 10:52 Labs: Lab Results 08/18/22 08/18/22 08/18/22 Range/Units 10:35 10:52 10:52 WBC 11.3 H (4.8-10.8) X10*3/uL RBC 5.27 (4.60-5.80) X10*6/uL Hgb 16.4 (14.0-18.0) g/dl Hct 46.6 (42.0-52.0) % MCV 88.4 (80.0-98.0) fL MCH 31.1 (27.0-33.0) pg MCHC 35.2 (31.0-36.0) g/dl RDW 12.1 (11.0-16.0) % Plt Count 199 (160-400) X10*3/uL MPV 12.4 (9.4-12.4) fL Immature Gran % (Auto) 1.3 H (0.0-0.4) % Neut % (Auto) 63.5 (45-73) % Lymph % (Auto) 27.7 (20-40) % [place] % (Auto) 6.8 (2-11) % Eos % (Auto) 0.2 (0-4) % Baso % (Auto) 0.5 (0-2) % Lymph # (Auto) 3.1 (1.2-4.9) X10*3/uL [place] # (Auto) 0.8 (0.1-1.2) X10*3/uL Eos # (Auto) 0.0 (0.0-0.4) X10*3/uL Baso # (Auto) 0.1 (0.0-0.2) X10*3/uL Abs Immat Gran (auto) 0.15 H (0.00-0.03) X10*3/uL Absolute Neuts (auto) 7.2 (2.0-8.3) x10*3/uL Absolute Nucleated RBC 0.000 (0.0-0.012) X10*3/uL Nucleated RBC % (auto) 0.0 (0.0-0.2) /100WBC Sodium 135 (135-145) mmol/L Potassium 4.1 (3.3-5.1) mmol/L Chloride 98 (96-108) mmol/L Carbon Dioxide 25 (22-29) mmol/L Anion Gap 16 (12-20) BUN 14 (9-16) mg/dL Creatinine 1.28 (0.5-1.4) mg/dL Estim Creat Clear Calc 96.1 Estimated GFR > 60 POC Glucose 386 H* (60-115) mg/dL Random Glucose 390 H* (60-115) mg/dL Estimat Average Glucose Hemoglobin A1c % % Calcium 9.6 (8.4-10.2) mg/dL Total Bilirubin 1.5 H (0.0-1.0) mg/dL Direct Bilirubin 0.3 (0.0-0.5) mg/dL AST 17 (5-37) U/L ALT 19 (0-40) U/L Alkaline Phosphatase 119 H (39-117) U/L Total Protein 7.5 (6.5-8.0) g/dL Albumin 4.5 (3.5-5.0) g/dL Lipase 40 (8-78) U/L 08/18/22 08/18/22 Range/Units 10:52 12:29 WBC (4.8-10.8) X10*3/uL RBC (4.60-5.80) X10*6/uL Hgb (14.0-18.0) g/dl Hct (42.0-52.0) % MCV (80.0-98.0) fL MCH (27.0-33.0) pg MCHC (31.0-36.0) g/dl RDW (11.0-16.0) % Plt Count (160-400) X10*3/uL MPV (9.4-12.4) fL Immature Gran % (Auto) (0.0-0.4) % Neut % (Auto) (45-73) % Lymph % (Auto) (20-40) % [place] % (Auto) (2-11) % Eos % (Auto) (0-4) % Baso % (Auto) (0-2) % Lymph # (Auto) (1.2-4.9) X10*3/uL [place] # (Auto) (0.1-1.2) X10*3/uL Eos # (Auto) (0.0-0.4) X10*3/uL Baso # (Auto) (0.0-0.2) X10*3/uL Abs Immat Gran (auto) (0.00-0.03) X10*3/uL Absolute Neuts (auto) (2.0-8.3) x10*3/uL Absolute Nucleated RBC (0.0-0.012) X10*3/uL Nucleated RBC % (auto) (0.0-0.2) /100WBC Sodium (135-145) mmol/L Potassium (3.3-5.1) mmol/L Chloride (96-108) mmol/L Carbon Dioxide (22-29) mmol/L Anion Gap (12-20) BUN (9-16) mg/dL Creatinine (0.5-1.4) mg/dL Estim Creat Clear Calc Estimated GFR POC Glucose 267 H (60-115) mg/dL Random Glucose (60-115) mg/dL Estimat Average Glucose TNP Hemoglobin A1c % > 14.0 % Calcium (8.4-10.2) mg/dL Total Bilirubin (0.0-1.0) mg/dL Direct Bilirubin (0.0-0.5) mg/dL AST (5-37) U/L ALT (0-40) U/L Alkaline Phosphatase (39-117) U/L Total Protein (6.5-8.0) g/dL Albumin (3.5-5.0) g/dL Lipase (8-78) U/L External Record Review External record reviewed: Office record, Outpatient record, Prior outpatient labs and Primary care record Prescription Management I considered prescription management with: Other (basal insulin, metformin -has has Rx for all 3 of his meds) Chronic Conditions Patient?s care impacted by: Diabetes Critical Care Time Critical Care Time Critical Care Time: No Discharge Plan Discharge Clinical Impression: Poorly controlled diabetes mellitus, Non-compliance Patient Disposition: Home, Self-Care Instructions: Diabetic Hyperglycemia (ED), Type 2 Diabetes Management for Adults (ED) Additional Instructions: Your hemoglobin A1c which is a reflection of your glucose over the last 3 months was >14%. Goal is <6%. IT IS IMPORTANT THAT YOU TAKE ALL OF YOUR DIABETES MEDICATIONS DIRECTED Set alarms on your phone to remember Poorly controlled diabetes can lead to significant risks like heart disease, kidney failure, blindness, nerve damage and other organ damage. Follow up with your [facility]. If you develop new or worsening symptoms call 911 or come back to the ER for further evaluation. Prescriptions: No Action (DME) FreeStyle Lite Strips Strip See Rx Instructions .ROUTE .MEDSUPPLY Qty: 100 11RF Rx Instructions: As directed three times a day (DME) lancets [FreeStyle Lancets] 28 gauge misc See Rx Instructions .ROUTE .MEDSUPPLY Qty: 100 11RF Rx Instructions: Three times a day albendazole 200 mg tablet 400 mg PO Q2W Qty: 4 0RF Rx Instructions: must administer with food, preferably a high-fat meal azithromycin [Zithromax Z-Fernando] 250 mg tablet 250 mg PO DAILY 4 Days Qty: 4 0RF Rx Instructions: start on day 2 of therapy prednisone 20 mg tablet 40 mg PO DAILY Qty: 10 0RF albuterol sulfate [ProAir HFA] 90 mcg/actuation HFA aerosol inhaler 2 puff inhalation Q4-6H PRN (Reason: shortness of breath or wheezing) Qty: 8.5 0RF naproxen [Naprosyn] 500 mg tablet 500 mg PO BID Qty: 20 0RF guaifenesin 200 mg/5 mL liquid 200 - 400 mg PO Q6H PRN (Reason: cough) Qty: 118 0RF pseudoephedrine HCl 60 mg tablet 60 mg PO Q6H PRN (Reason: nasal congestion) Qty: 30 0RF clotrimazole [Athlete's Foot (clotrimazole)] 1 % cream 1 appl topical BID 28 Days Qty: 30 0RF (DME) FreeStyle Precision Peter Strips Strip See Rx Instructions .ROUTE .MEDSUPPLY Qty: 10 Rx Instructions: As directed (DME) FreeStyle Roe 2 Sensor Kit See Rx Instructions .Route Qty: 2 5RF Rx Instructions: As directed change every 2 wks metformin 1,000 mg tablet 1,000 mg PO BID Qty: 180 2RF Trulicity 4.5 mg/0.5 mL pen injector 4.5 mg subcut QWEEK Qty: 2 3RF Tresiba FlexTouch U-200 200 unit/mL (3 mL) insulin pen 20 unit subcut BEDTIME Qty: 9 1RF (DME) blood-glucose meter [FreeStyle Lite Meter] Kit See Rx Instructions .ROUTE .MEDSUPPLY Qty: 1 0RF Rx Instructions: As directed (DME) pen needle, diabetic [BD Raegan 2nd Gen Pen Needle] 32 gauge x 5/32 needle See Rx Instructions .Route Qty: 30 11RF Rx Instructions: As directed once daily Interventions: ED Discharge Assessment Last Done: 08/18/22 12:53
[2022-08-18 10:56] LABS: MANUAL DIFF FLAG NO
[2022-08-18 10:59] LABS: Basophils Absolute Auto 0.1 X10*3/uL (0.0-0.2); Basophils Percent Auto 0.5 % (0-2); Eosinophils Percent Auto 0.2 % (0-4); Hematocrit 46.6 % (42.0-52.0); Hemoglobin 16.4 g/dl (14.0-18.0); Imm Gran Abs Auto 0.15 X10*3/uL (0.00-0.03); Imm Gran Pct Auto 1.3 % (0.0-0.4); Lymphocytes Absolute Auto 3.1 X10*3/uL (1.2-4.9); Lymphocytes Percent Auto 27.7 % (20-40); Mean Corpuscular HGB Conc 35.2 g/dl (31.0-36.0); Mean Corpuscular Hemoglobin 31.1 pg (27.0-33.0); Mean Corpuscular Volume 88.4 fL (80.0-98.0); Mean Platelet Volume 12.4 fL (9.4-12.4); Monocytes Absolute Auto 0.8 X10*3/uL (0.1-1.2); Monocytes Percent Auto 6.8 % (2-11); Neutrophils Absolute Auto 7.2 x10*3/uL (2.0-8.3); Neutrophils Percent Auto 63.5 % (45-73); Platelet Count 199 X10*3/uL (160-400); Red Blood Count 5.27 X10*6/uL (4.60-5.80); Red Cell Distribution Width 12.1 % (11.0-16.0); White Blood Count 11.3 X10*3/uL (4.8-10.8)
[2022-08-18] MEDS: 0.9 % Sodium Chloride 1,000 ML 999 ML IVCONT (11:02)
[2022-08-18 11:17] LABS: Alanine Aminotransferase 19 U/L (0-40); Albumin Level 4.5 g/dL (3.5-5.0); Alkaline Phosphatase 119 U/L (39-117); Anion Gap 16 (12-20); Aspartate Amino Transferase 17 U/L (5-37); Bilirubin Direct 0.3 mg/dL (0.0-0.5); Bilirubin Total 1.5 mg/dL (0.0-1.0); Blood Urea Nitrogen 14 mg/dL (9-16); Calcium 9.6 mg/dL (8.4-10.2); Carbon Dioxide 25 mmol/L (22-29); Chloride 98 mmol/L (96-108); Creatinine Clr Calc Pharmacy 96.1; Estimated Glomerular Filt Rate > 60; Glucose Random 390 mg/dL (60-115); Lipase 40 U/L (8-78); Potassium 4.1 mmol/L (3.3-5.1); Sodium 135 mmol/L (135-145); Total Protein 7.5 g/dL (6.5-8.0)
[2022-08-18 11:24] LABS: Hemoglobin A1c % > 14.0 %
--- NOTE | 2022-08-18 11:42 | PC.NURSE ---
resting quiently in bed. IVF infusing. Discussed with patient importance of being compliant with meds/diet with diabetes diagnosis. NAD. Will continue to monitor.
[2022-08-18 12:35] LABS: Glucose, Whole Blood 267 mg/dL (60-115)
== END 2022-08-18 12:54 | disposition home or self-care (01) ==
PROVIDERS: Physician Assistant; Emergency Provider Emergency Medicine; PCP Physician Assistant
DX: E11.65 Type 2 diabetes mellitus with hyperglycemia (principal); Z91.199 Patient's noncompliance with other medical treatment and regimen due to unspecified reason; Z79.899 Other long term (current) drug therapy; Z79.84 Long term (current) use of oral hypoglycemic drugs
CPT/HCPCS: 36415; 80048; 80076; 82947; 83036; 83690; 85025; 96360; 99283; 99284

== ENCOUNTER 2022-09-30 22:41 | Emergency (ER) | payer OTHER, SELFPAY ==
[2022-09-30 22:47] VITALS: BP 146/104; PULSE 101; RESP 18; TEMP 36.8; O2SAT 96; BMI 35.4
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
[2022-09-30] MEDS: Silver Nitrate Applicator STICK..EA. 1 APPL TOPICAL (23:50)
== END 2022-10-01 00:34 | disposition home or self-care (01) ==
PROVIDERS: Emergency Provider Internal Medicine; PCP Physician Assistant
DX: S31.21XA Laceration without foreign body of penis, initial encounter (principal); Y28.9XXA Contact with unspecified sharp object, undetermined intent, initial encounter; Y93.9 Activity, unspecified; Y92.9 Unspecified place or not applicable; Y99.9 Unspecified external cause status; Z79.899 Other long term (current) drug therapy
CPT/HCPCS: 99283; 99284

== ENCOUNTER → 2022-11-11 12:26 | Outpatient (BNVA) | payer OTHER, SELFPAY | PROVIDERS: PCP Physician Assistant; Visit Provider Internal Medicine Endocrinology, Diabetes & Metabolism | DX: E11.65 Type 2 diabetes mellitus with hyperglycemia (principal); Z79.4 Long term (current) use of insulin | CPT/HCPCS: 82947; 99212 ==

== ENCOUNTER 2022-11-12 09:28 | Outpatient (REF) | payer OTHER, SELFPAY ==
[2022-11-12 10:34] LABS: Estimated Average Glucose 258 mg/dL; Hemoglobin A1c % 10.6 %
[2022-11-12 10:36] LABS: Cholesterol 174 mg/dL; HDL Cholesterol 44 mg/dL; LDL Cholesterol Calculated 112 mg/dl; Triglycerides 91 mg/dL
[2022-11-12 10:36] LABS: Microalbum/Creatinine Ratio Ur 6.6 ug/mg cr
== END 2022-11-12 09:29 | disposition home or self-care (01) ==
LOC: HO.LAB 09:28
PROVIDERS: Visit Provider Internal Medicine Endocrinology, Diabetes & Metabolism
DX: E11.65 Type 2 diabetes mellitus with hyperglycemia (principal); Z79.4 Long term (current) use of insulin
CPT/HCPCS: 36415; 80061; 82043; 83036

== ENCOUNTER 2022-11-20 21:53 | Emergency (ER) | payer OTHER, SELFPAY ==
[2022-11-20 21:57] VITALS: BP 159/83; PULSE 96; RESP 18; TEMP 35.7; O2SAT 97; BMI 31.3
[2022-11-20 22:50] LABS: Influenza A PCR NEGATIVE (Negative); Influenza B PCR NEGATIVE (Negative); Resp Syncy Virus RNA Qual PCR NEGATIVE (Negative); SARS COV2 PCR INHOUSE NEGATIVE (Negative)
[2022-11-21 02:28] VITALS: BP 113/70; PULSE 79; RESP 18; TEMP 36.7; O2SAT 98
--- NOTE | 2022-11-21 03:58 | ED_ITS ---
HPI - General Adult General Chief complaint: General Medical Stated complaint: multiple body pains, coughing, nasal congestion Time Seen by Provider: 11/21/22 03:30 History of Present Illness HPI narrative: Patient is a 22-year-old male present today with having coughing congestion upper respiratory symptoms for the last 3 days. Patient is vaccinated COVID. Denies any nausea vomiting diarrhea. Positive generalized malaise weakness. Patient's family also sick at home. Took some Tylenol with no relief present to the emergency department. Related Data Home Medications Medication Instructions Recorded Confirmed blood sugar diagnostic #10 ea 04/23/20 11/19/22 insulin degludec 200 unit/mL (3 36 unit subcut BEDTIME 11/19/22 11/19/22 mL) subcutaneous pen (Tresiba FlexTouch U-200 insulin) Previous Rx's Medication Instructions Recorded albuterol sulfate 90 mcg/actuation 2 puff inhalation Q4-6H PRN 05/05/21 aerosol inhaler (ProAir HFA) shortness of breath or wheezing #8.5 grams clotrimazole 1 % topical cream 1 appl topical BID 4 weeks #30 08/13/22 (Athlete's Foot (clotrimazole)) grams blood-glucose meter (FreeStyle #1 ea 08/18/22 Lite Meter kit) dulaglutide 4.5 mg/0.5 mL 4.5 mg (0.5 mL) subcut QWEEK #2 mL 08/18/22 subcutaneous pen injector ([employer]) flash glucose sensor (FreeStyle #2 ea 08/18/22 Roe 2 Sensor kit) metformin 1,000 mg tablet 1,000 mg PO BID #180 tabs 08/18/22 pen needle, diabetic 32 gauge x #30 ea 08/18/22 (BD Raegan 2nd Gen Pen Needle) blood sugar diagnostic (FreeStyle #100 ea 08/20/22 Lite Strips) lancets 28 gauge (FreeStyle #100 ea 09/03/22 Lancets) glucagon 3 mg/actuation nasal 3 mg intranasal ONCE #2 ea 11/11/22 spray (Baqsimi) alcohol swabs (Alcohol Prep Pads) 1 pad topical DAILY 90 days #100 ea 11/19/22 simvastatin 5 mg tablet 5 mg PO DAILY 90 days #90 tabs 11/19/22 azithromycin 250 mg tablet See Rx Instructions PO .COMPLEX 11/21/22 upper resp infection #6 tabs benzonatate 100 mg capsule 100 mg PO TID PRN cough #14 caps 11/21/22 ibuprofen 400 mg tablet 400 mg PO Q6H PRN pain #20 tabs 11/21/22 Allergies Allergy/AdvReac Type Severity Reaction Status Date / Time No Known Allergies Allergy Verified 11/19/22 09:44 [No Known Allergies*] Review of Systems Review of Systems: Positive coughing congestion of his symptoms Yes all other systems are reviewed and are negative [facility] Past Medical History Attestation statement: The following information was validated with the patient. Medical History Asthma, exercise induced Balanitis Obesity due to excess calories Other obsessive-compulsive disorder Tinea Tinea pedis Type 2 diabetes mellitus with hyperglycemia Surgical History No pertinent past surgical history Family History Family History Father No problems noted. Mother Diabetes mellitus Paternal Grandmother Diabetes mellitus Maternal Grandfather Diabetes mellitus Social History Social History Household Members: Spouse and Children Housing: Apartment Alcohol intake: current Alcohol intake frequency: holidays/special occasions only Alcohol type: hard liquor Patient Tobacco Use Status: Never used Tobacco e-Cigarette/Vaping Use: Never Used Second Hand Smoke Exposure: No Advance Directives: No Advance Directives Information Provided: Yes service: No Current occupational status: employed Cognitive needs: No Hearing needs: No Vision needs: No Physical Exam ED Vital Signs: Vital Signs - 24 hr 11/20/22 21:57 11/21/22 02:28 Temperature 96.3 F L 98.0 F Pulse Rate 96 79 Respiratory Rate 18 18 Blood Pressure 159/83 H 113/70 Pulse Oximetry 97 98 Oxygen Delivery Method Room Air Room Air BMI result Body Mass Index 31.3 Appearance: Alert. Oriented X3. No acute distress. Eyes: Pupils equal, round and reactive to light. ENT: Pharynx normal. Neck: Normal inspection. Neck supple. No lymph nodes noted. No crepitus CVS: Normal heart rate and rhythm. Pulses normal. Normal S1 and S2 Respiratory: No respiratory distress. Breath sounds normal. No Wheezing. No rales Abdomen: Soft and nontender. No rigidity. No distention. good BS x4 Skin: Skin warm and dry. Normal skin color. Normal skin turgor. Extremities: No lower extremity edema. Neurovascular intact to all extremities. No Lacerations. No Rash Neuro: Oriented X 3. No motor deficit. No sensory deficit. Moving all extermities. No slurred speech Medical Decision Making Medical Decision Making [facility] Narrative: Patient well appearing no acute distress. Flu RSV COVID all negative. Positive coughing congestion upper respiratory symptoms with a normal O2 sat. Will give a Z-Fernando for bronchitis. Motrin for pain. Have patient follow-up on an outpatient basis. Differential Diagnosis Bronchitis, pneumonia, influenza Lab Data [facility] Lab Attestation statement: I reviewed the patient's lab results. Labs: Lab Results 11/20/22 Range/Units 22:09 Influenza Type A (PCR) NEGATIVE (Negative) Influenza Type B (PCR) NEGATIVE (Negative) RSV RNA Qual (PCR) NEGATIVE (Negative) SARS-CoV-2 RNA (RT-PCR) NEGATIVE (Negative) Chronic Conditions Patient?s care impacted by: Diabetes Discharge Plan Discharge Clinical Impression: Bronchitis Patient Disposition: Home, Self-Care Instructions: Acute Bronchitis (ED) Prescriptions: New azithromycin 250 mg tablet See Rx Instructions .ROUTE .COMPLEX Qty: 6 0RF Rx Instructions: take 500 mg today (day 1), then 250 mg for 4 days (days 2-5) ibuprofen 400 mg tablet 400 mg PO Q6H PRN (Reason: pain) Qty: 20 0RF benzonatate 100 mg capsule 100 mg PO TID PRN (Reason: cough) Qty: 14 0RF No Action (DME) FreeStyle Lite Strips Strip See Rx Instructions .ROUTE .MEDSUPPLY Qty: 100 11RF Rx Instructions: As directed three times a day (DME) lancets [FreeStyle Lancets] 28 gauge misc See Rx Instructions .ROUTE .MEDSUPPLY Qty: 100 11RF Rx Instructions: Three times a day albuterol sulfate [ProAir HFA] 90 mcg/actuation HFA aerosol inhaler 2 puff inhalation Q4-6H PRN (Reason: shortness of breath or wheezing) Qty: 8.5 0RF clotrimazole [Athlete's Foot (clotrimazole)] 1 % cream 1 appl topical BID 28 Days Qty: 30 0RF Tresiba FlexTouch U-200 200 unit/mL (3 mL) insulin pen 36 unit subcut BEDTIME alcohol swabs [Alcohol Prep Pads] Pads, Medicated 1 pad topical DAILY 90 Days Qty: 100 3RF simvastatin 5 mg tablet 5 mg PO DAILY 90 Days Qty: 90 3RF (DME) FreeStyle Precision Peter Strips Strip See Rx Instructions .ROUTE .MEDSUPPLY Qty: 10 Rx Instructions: As directed (DME) FreeStyle Roe 2 Sensor Kit See Rx Instructions .Route Qty: 2 5RF Rx Instructions: As directed change every 2 wks metformin 1,000 mg tablet 1,000 mg PO BID Qty: 180 2RF Trulicity 4.5 mg/0.5 mL pen injector 4.5 mg subcut QWEEK Qty: 2 3RF (DME) blood-glucose meter [FreeStyle Lite Meter] Kit See Rx Instructions .ROUTE .MEDSUPPLY Qty: 1 0RF Rx Instructions: As directed (DME) pen needle, diabetic [BD Raegan 2nd Gen Pen Needle] 32 gauge x 5/32 needle See Rx Instructions .Route Qty: 30 11RF Rx Instructions: As directed once daily Baqsimi 3 mg/actuation spray,non-aerosol 3 mg intranasal ONCE Qty: 2 5RF
== END 2022-11-21 04:15 | disposition home or self-care (01) ==
PROVIDERS: Emergency Provider Emergency Medicine Emergency Medical Services; PCP Physician Assistant
DX: J40 Bronchitis, not specified as acute or chronic (principal); Z20.822 Contact with and (suspected) exposure to COVID-19; Z20.828 Contact with and (suspected) exposure to other viral communicable diseases
CPT/HCPCS: 0241U; 99283; 99284

== ENCOUNTER 2022-12-24 09:12 | Outpatient (RCR) | payer OTHER, SELFPAY ==
--- NOTE | 2022-12-24 16:08 | MHC.PT.EP ---
[facility] [place] Office [place] Office [place] Office [address] Cate Rivers [address] [phone] F: [phone] F: [phone] F: [phone] F: [phone] Physical Therapy Plan of Care Date of Evaluation: Date of Surgery: N/A Diagnosis: left hip pain (RL) Assessment: pt is a 22 y/o male presenting to physical therapy w/ referring diagnosis of left hip pain. pt's signs and symptoms consistent w/ greater trochanter bursitis. Impairments include pain, decreased range of motion, decreased strength, impaired functional mobility, impaired postural awareness, and altered ambulation mechanics. pt is a good candidate for skilled PT due to age, potential remediation of impairments, typical disease/condition progression and prognosis, comorbidities, and motivation. pt would benefit from skilled PT intervention to provide a tailored strengthening and stretching exercise program, functional training, gait training, postural re-training, neuromuscular re-education, modalities as needed for pain, equipment safety demonstration. Frequency and Duration: The patient will be seen 2x/wk for 3 wks Short Term Goals: pt will be I w/ HEP to promote self-management of condition. pt will improve L hip flexion by 1 MMT grade to improve tolerance for stairs. Labor Delivery Rn Goals: pt will report a statistically significant improvement in self-reported outcome measure, LEFI, to promote return to PLOF. pt will demo proper lifting mechanics w/ 25# x5 reps to promote improved functional tolerance. Treatment Plan: Modalities to reduce pain, spasms and effusion. Manual therapy to restore motion and function. Therapeutic exercise to improve strength and flexibility. Neuromuscular re-education for posture and balance. Therapeutic activities to return to functional activities of daily living. Electronically signed by: Amelia Mott PT, DPT Please sign and return to therapist. Thank you for your referral.
--- NOTE | 2023-01-07 10:16 | MHC.PT.DC ---
[facility] [place] Office [place] Office [place] Office [address] Cate Rivers [address] [facility] [phone] F: [phone] F: [phone] F: [phone] F: [phone] Physical Therapy Discharge Report Diagnosis: left hip pain (RL) Date of Surgery: N/A Date of Evaluation: 12/24/22 Date of Discharge: 01/07/23 Treatments to Date: 1 Cancellations to Date: 0 No Shows to Date: 3 Discharge Status: Visit Non-compliance Discharge Summary: The patient no showed three consecutive appointments. Per [facility] policy, which was reviewed with the patient and signed, he is discharged for non-compliance. Electronically signed by: Amelia Mott PT, DPT Please sign and return to therapist. Thank you for your referral.
== END 2023-01-07 10:17 | disposition home or self-care (01) ==
LOC: HO.PT 09:12
PROVIDERS: PCP Physician Assistant; Visit Provider Physician Assistant
DX: M25.552 Pain in left hip (principal)
CPT/HCPCS: 97162

== ENCOUNTER → 2022-12-29 12:42 | Outpatient (BNVA) | payer OTHER, SELFPAY | PROVIDERS: PCP Physician Assistant; Visit Provider Dietitian, Registered | DX: E11.65 Type 2 diabetes mellitus with hyperglycemia (principal); Z79.4 Long term (current) use of insulin; Z71.3 Dietary counseling and surveillance | CPT/HCPCS: 97802 ==

== ENCOUNTER 2023-02-17 07:55 | Outpatient (AMB) | payer OTHER, SELFPAY ==
--- NOTE | 2023-02-17 08:01 | MHC.OFFVIS ---
Intake Vital Signs 02/17/23 08:08 Height 5 ft 7 in Weight 213 lb 2.992 oz BMI 33.4 BP 110/78 Blood Pressure Location Lt brachial Position Sitting Pulse 88 Pulse Source Pulse Oximeter Intake Visit Reasons: f/u Type 2 DM Intake Note: Patient present today to follow up on Type 2 Diabetes Mellitus. Patient receives DME supplies through: Pharmacy Last Diabetic Eye exam: December 2022 Last Podiatry Visit: None Random Glucose:165 mg/dl HgA1C: 6.5% Ekg Manager Required: No Accompanied by: Self / Same As Patient Allergies No Known Allergies [No Known Allergies*] Allergy (Verified 02/17/23 08:04) HPI HPI Comments History of Present Illness Details Patient is 22 yo male with DM type 2 diagnosed in 2019, who presents for continued management of his diabetes. Diabetes medications: . metformin 1000 mg BID, Trulicity 4.5mg/week , Tresiba 56 units . Glucometer download shows she is checking his point cares sporadically. Ranges 73 to 161. Average glucose is 125. There are only 2 point cares in the glucometer Hypoglycemia:no Hyperglycemia: + urinary frequency, + nocturia 3-4 x/night , + polydypsia Exercise: working at [employer]. Last ophthalmology evaluation: , 09/2022 reports no retinopathy Laboratory Tests 01/03/21 01/03/21 01/03/21 08:48 08:59 09:30 Creatinine Estimated GFR Hgb A1c (Clinic) 8.1 H Triglycerides 54 Cholesterol 141 LDL Cholesterol, C alc 80 HDL Cholesterol 51 TSH 0.68 Microalb/Creat Rat io 4.0 04/13/21 09:15 Creatinine 1.05 Estimated GFR > 60 Hgb A1c (Clinic) Triglycerides Cholesterol LDL Cholesterol, C alc HDL Cholesterol TSH Microalb/Creat Rat io [facility] Medical History Asthma, exercise induced Balanitis Obesity due to excess calories Other obsessive-compulsive disorder Tinea Tinea pedis Type 2 diabetes mellitus with hyperglycemia Surgical History No pertinent past surgical history Family History Father No problems noted. Mother Diabetes mellitus Paternal Grandmother Diabetes mellitus Maternal Grandfather Diabetes mellitus Social History Household Members: Spouse and Children Housing: Apartment Alcohol intake: current Alcohol intake frequency: holidays/special occasions only Alcohol type: hard liquor Patient Tobacco Use Status: Never used Tobacco e-Cigarette/Vaping Use: Never Used Second Hand Smoke Exposure: No service: No Current occupational status: employed Cognitive needs: No Hearing needs: No Vision needs: No Physical Exam Vital Signs: Last Vital Signs Pulse 88 02/17/23 08:08 BP 110/78 02/17/23 08:08 BMI result Body Mass Index 33.4 Absence of Cushingoid features. Absence of acromegalic features. Neck exam reveals nl size thyroid about 15 gms. No thyroid nodules palpable. No carotid bruits present. Lungs CTA. Heart S1 S2, Reg R/R. No M/R/ G. Skin exam reveals absence of vitiligo or acanthosis nigricans. Abdominal exam reveals Soft NT/ND with NA BS. No organomegaly present. Neck Other: . Extrem Other: Visual exam of foot performed. No ulcerations or open lesions. No onchomycosis, no callouses.Pulses 2 + distally Sensation intact to monofilament exam. Vibratory sensation sensed is intact with 128 Hz tuning fork Results AMB Hemoglobin A1c AMB Hemoglobin A1c 6.5 % Last Edit by Kiya Forbes on 02/17/23 08:34 Results Reviewed Results Reviewed: 02/17/23 08:12 Glucose, Whole Blood Routine Laboratory Last Values Glucose (Clinic) 165 mg/dL (60-115) H 02/17/23 08:12 Hgb A1c (Clinic) 6.5 % (4.0-6.0) H 02/17/23 08:33 Assessment & Plan Assessment & Plan (1) Type 2 diabetes mellitus with hyperglycemia: Code(s): E11.65 - Type 2 diabetes mellitus with hyperglycemia Qualifiers: Diabetes mellitus detention insulin use: with detention use Qualified Code(s): E11.65 - Type 2 diabetes mellitus with hyperglycemia; Z79.4 - [facility] (current) use of insulin Plan: This is a 22-year-old male with a history of type 2 diabetes being treated with Trulicity, metformin and basal insulin with excellent improved glycemic control and no known microvascular or macrovascular complications At this point, patient follow-up with his primary care provider. Should continue current regimen. If his HbA1c deteriorate, he can return back to endocrinology. His primary care provider might want to increase his simvastatin with an LDL goal <100 Orders: Orders AMB Hemoglobin A1c Today E11.65 - Type 2 diabetes mellitus with hyperglycemia Coding Level of Care Code Est Pt Level 4 (27407) Diagnoses Type 2 diabetes mellitus with hyperglycemia E11.65; Z79.4 Diabetes mellitus detention insulin use: with detention use
[2023-02-17 08:08] VITALS: BP 110/78; PULSE 88; BMI 33.4
[2023-02-17 08:17] LABS: Glucose, Whole Blood 165 mg/dL (60-115)
== END 2023-02-17 08:30 | disposition home or self-care (01) ==
PROVIDERS: PCP Physician Assistant; Visit Provider Internal Medicine Endocrinology, Diabetes & Metabolism
DX: E11.65 Type 2 diabetes mellitus with hyperglycemia (principal); Z79.4 Long term (current) use of insulin
CPT/HCPCS: 99214

== ENCOUNTER → 2023-02-17 07:55 | Outpatient (BNVA) | payer OTHER, SELFPAY | PROVIDERS: Visit Provider Internal Medicine Endocrinology, Diabetes & Metabolism | DX: E11.65 Type 2 diabetes mellitus with hyperglycemia (principal); Z79.4 Long term (current) use of insulin | CPT/HCPCS: 82947; 83036; 99212 ==

== ENCOUNTER 2023-03-13 19:22 | Emergency (ER) | payer OTHER, SELFPAY ==
[2023-03-13 20:29] VITALS: BP 131/75; PULSE 89; RESP 18; TEMP 37.1; O2SAT 98; BMI 35.4
--- NOTE | 2023-03-13 20:56 | ECG_ITS ---
Test Reason : FAINTING Blood Pressure : / mmHG Vent. Rate : 063 BPM Atrial Rate : 063 BPM P-R Int : 124 ms QRS Dur : 088 ms QT Int : 406 ms P-R-T Axes : 021 -09 004 degrees QTc Int : 415 ms Sinus rhythm with sinus arrhythmia with occasional Premature ventricular complexes Otherwise normal ECG No previous ECGs available Referred By: Generic ED Physician Electronically Signed By:PIPPA MURGUIA
[2023-03-13 21:21] LABS: MANUAL DIFF FLAG NO
[2023-03-13 21:22] LABS: Basophils Percent Auto 0.2 % (0-2); Eosinophils Percent Auto 0.1 % (0-4); Hematocrit 43.5 % (42.0-52.0); Hemoglobin 14.7 g/dl (14.0-18.0); Imm Gran Abs Auto 0.04 X10*3/uL (0.00-0.03); Imm Gran Pct Auto 0.3 % (0.0-0.4); Lymphocytes Absolute Auto 4.1 X10*3/uL (1.2-4.9); Lymphocytes Percent Auto 34.3 % (20-40); Mean Corpuscular HGB Conc 33.8 g/dl (31.0-36.0); Mean Corpuscular Hemoglobin 31.3 pg (27.0-33.0); Mean Corpuscular Volume 92.6 fL (80.0-98.0); Mean Platelet Volume 11.8 fL (9.4-12.4); Monocytes Percent Auto 8.5 % (2-11); Neutrophils Absolute Auto 6.8 x10*3/uL (2.0-8.3); Neutrophils Percent Auto 56.6 % (45-73); Platelet Count 176 X10*3/uL (160-400); Red Cell Distribution Width 12.9 % (11.0-16.0); White Blood Count 11.9 X10*3/uL (4.8-10.8)
[2023-03-13 21:37] LABS: Alanine Aminotransferase 18 U/L (0-40); Albumin Level 4.4 g/dL (3.5-5.0); Alkaline Phosphatase 72 U/L (39-117); Anion Gap 12 (12-20); Aspartate Amino Transferase 18 U/L (5-37); Bilirubin Total 2.2 mg/dL (0.0-1.0); Blood Urea Nitrogen 15 mg/dL (9-16); Calcium 9.2 mg/dL (8.4-10.2); Carbon Dioxide 29 mmol/L (22-29); Chloride 103 mmol/L (96-108); Creatinine Clr Calc Pharmacy 122.7; Estimated Glomerular Filt Rate > 60; Glucose Random 113 mg/dL (60-115); Potassium 3.7 mmol/L (3.3-5.1); Sodium 140 mmol/L (135-145); Total Protein 7.3 g/dL (6.5-8.0)
--- NOTE | 2023-03-14 00:53 | ED.DIZZY ---
HPI - Dizziness General Chief Complaint: Dizziness Stated Complaint: passing out Time Seen by Provider: 03/14/23 00:36 History of Present Illness HPI Narrative: Patient is a 22-year-old male with a history of major depression, obsessive-compulsive disorder history of ADHD been drinking alcohol on a regular basis complaining of episodes of lightheaded is on stretching. Question syncope for a few seconds. Denies chest pain associated with the symptoms. Denies noticing any bloody stool. Denies noticing any leg swelling. No history of travel. No history of blood clots in the past. Patient is from home. Positive history of diabetes. Positive history of anxiety. Patient denies any head injury. Related Data Home Medications Medication Instructions Recorded Confirmed blood sugar diagnostic #10 ea 04/23/20 11/19/22 insulin degludec 200 unit/mL (3 36 unit subcut BEDTIME 11/19/22 11/19/22 mL) subcutaneous pen (Tresiba FlexTouch U-200 insulin) Previous Rx's Medication Instructions Recorded albuterol sulfate 90 mcg/actuation 2 puff inhalation Q4-6H PRN 05/05/21 aerosol inhaler (ProAir HFA) shortness of breath or wheezing #8.5 grams blood-glucose meter (FreeStyle #1 ea 08/18/22 Lite Meter kit) dulaglutide 4.5 mg/0.5 mL 4.5 mg (0.5 mL) subcut QWEEK #2 mL 08/18/22 subcutaneous pen injector ([employer]) flash glucose sensor (FreeStyle #2 ea 08/18/22 Roe 2 Sensor kit) metformin 1,000 mg tablet 1,000 mg PO BID #180 tabs 08/18/22 pen needle, diabetic 32 gauge x #30 ea 08/18/2232 (BD Raegan 2nd Gen Pen Needle) blood sugar diagnostic (FreeStyle #100 ea 08/20/22 Lite Strips) lancets 28 gauge (FreeStyle #100 ea 09/03/22 Lancets) alcohol swabs (Alcohol Prep Pads) 1 pad topical DAILY 90 days #100 ea 11/19/22 simvastatin 5 mg tablet 5 mg PO DAILY 90 days #90 tabs 11/19/22 Allergies Allergy/AdvReac Type Severity Reaction Status Date / Time No Known Allergies Allergy Verified 02/17/23 08:04 [No Known Allergies*] Review of Systems Review of Systems: Positive dizziness Positive lightheaded Positive near-syncope No chest pain No diaphoresis Yes all other systems are reviewed and are negative [facility] Past Medical History Medical History Tinea pedis Tinea Obesity due to excess calories Balanitis Other obsessive-compulsive disorder Asthma, exercise induced Type 2 diabetes mellitus with hyperglycemia Surgical History No pertinent past surgical history Family History Family History Father No problems noted. Mother Diabetes mellitus Paternal Grandmother Diabetes mellitus Maternal Grandfather Diabetes mellitus Social History Social History Household Members: Spouse and Children Housing: Apartment Alcohol intake: current Alcohol intake frequency: holidays/special occasions only Alcohol type: hard liquor Patient Tobacco Use Status: Never used Tobacco e-Cigarette/Vaping Use: Never Used Second Hand Smoke Exposure: No Advance Directives: No Advance Directives Information Provided: No service: No Current occupational status: employed Cognitive needs: No Hearing needs: No Vision needs: No Physical Exam Vital Signs: Vital Signs: Last Vital Signs Temp 98.0 F 03/14/23 01:56 Pulse 59 03/14/23 01:56 Resp 17 03/14/23 01:56 BP 103/54 L 03/14/23 01:56 Pulse Ox 100 03/14/23 01:56 O2 Del Method Room Air 03/14/23 01:56 BMI result Body Mass Index 35.4 Appearance: Alert. Oriented X3. No acute distress. Eyes: Pupils equal, round and reactive to light. ENT: Pharynx normal. Neck: Normal inspection. Neck supple. No lymph nodes noted. No crepitus CVS: Normal heart rate and rhythm. Pulses normal. Normal S1 and S2 Respiratory: No respiratory distress. Breath sounds normal. No Wheezing. No rales Abdomen: Soft and nontender. No rigidity. No distention. good BS x4 Skin: Skin warm and dry. Normal skin color. Normal skin turgor. Extremities: No lower extremity edema. Neurovascular intact to all extremities. No Lacerations. No Rash Neuro: Oriented X 3. No motor deficit. No sensory deficit. Moving all extermities. No slurred speech Medications Administered Discontinued Medications Generic Name Dose Route Start Last Admin Trade Name Bassam PRN Reason Stop Dose Admin Sodium Chloride 1,000 mls @ 999 mls/hr 03/14/23 01:00 03/14/23 01:13 Ns IV 03/14/23 02:00 999 mls/hr .Q1H1M FLORIDALMA Administration Medical Decision Making Medical Decision Making [facility] Narrative: Patient has symptoms consistent with vasovagal syncope. D-dimer is negative in the setting of low risk unlikely to have a PE. Patient had dizziness lightheadedness then has syncopal episode. He is otherwise well appearing. He is neurologically intact. His alcohol level is less than 10 no gross alcohol present. Patient's troponin was negative. Will discharge patient home and have patient follow-up on an outpatient basis. Encourage fluids. Differential Diagnosis Hyperglycemia, syncope, dehydration, alcohol intoxication Admission/Observation Consideration of admission/observation: Escalation of care including admission/observation considered Lab Data [facility] Lab Attestation statement: I reviewed the patient's lab results. 03/13/23 21:17 03/13/23 21:17 Labs: Lab Results 03/13/23 03/14/23 Range/Units 21:17 01:13 WBC 11.9 H (4.8-10.8) X10*3/uL RBC 4.70 (4.60-5.80) X10*6/uL Hgb 14.7 (14.0-18.0) g/dl Hct 43.5 (42.0-52.0) % MCV 92.6 (80.0-98.0) fL MCH 31.3 (27.0-33.0) pg MCHC 33.8 (31.0-36.0) g/dl RDW 12.9 (11.0-16.0) % Plt Count 176 (160-400) X10*3/uL MPV 11.8 (9.4-12.4) fL Immature Gran % (Auto) 0.3 (0.0-0.4) % Neut % (Auto) 56.6 (45-73) % Lymph % (Auto) 34.3 (20-40) % [place] % (Auto) 8.5 (2-11) % Eos % (Auto) 0.1 (0-4) % Baso % (Auto) 0.2 (0-2) % Lymph # (Auto) 4.1 (1.2-4.9) X10*3/uL [place] # (Auto) 1.0 (0.1-1.2) X10*3/uL Eos # (Auto) 0.0 (0.0-0.4) X10*3/uL Baso # (Auto) 0.0 (0.0-0.2) X10*3/uL Abs Immat Gran (auto) 0.04 H (0.00-0.03) X10*3/uL Absolute Neuts (auto) 6.8 (2.0-8.3) x10*3/uL Absolute Nucleated RBC 0.000 (0.0-0.012) X10*3/uL Nucleated RBC % (auto) 0.0 (0.0-0.2) /100WBC D-Dimer High Sensitivty < 150 NG/ML Sodium 140 (135-145) mmol/L Potassium 3.7 (3.3-5.1) mmol/L Chloride 103 (96-108) mmol/L Carbon Dioxide 29 (22-29) mmol/L Anion Gap 12 (12-20) BUN 15 (9-16) mg/dL Creatinine 1.00 (0.5-1.4) mg/dL Estim Creat Clear Calc 122.7 Estimated GFR > 60 Random Glucose 113 (60-115) mg/dL Calcium 9.2 (8.4-10.2) mg/dL Total Bilirubin 2.2 H (0.0-1.0) mg/dL AST 18 (5-37) U/L ALT 18 (0-40) U/L Alkaline Phosphatase 72 (39-117) U/L Troponin I High Sens < 2.7 (<3.5-35.0) ng/L Total Protein 7.3 (6.5-8.0) g/dL Albumin 4.4 (3.5-5.0) g/dL Ethyl Alcohol < 10 mg/dL Independent Interpretation I performed an independent interpretation of an: EKG Interpretation: My interpretation of patient's EKG showed a sinus rhythm heart rate is 70 WV QRS QTC within normal limits is T-wave inversion over the inferior leads External Record Review External record reviewed: Outpatient record Documentation from Endocrine. Positive history of diabetes Chronic Conditions Patient?s care impacted by: Diabetes Discharge Plan Discharge Clinical Impression: Syncope Patient Disposition: Home, Self-Care Instructions: Syncope (DC) Prescriptions: No Action (DME) FreeStyle Lite Strips Strip See Rx Instructions .ROUTE .MEDSUPPLY Qty: 100 11RF Rx Instructions: As directed three times a day (DME) lancets [FreeStyle Lancets] 28 gauge misc See Rx Instructions .ROUTE .MEDSUPPLY Qty: 100 11RF Rx Instructions: Three times a day albuterol sulfate [ProAir HFA] 90 mcg/actuation HFA aerosol inhaler 2 puff inhalation Q4-6H PRN (Reason: shortness of breath or wheezing) Qty: 8.5 0RF Tresiba FlexTouch U-200 200 unit/mL (3 mL) insulin pen 36 unit subcut BEDTIME alcohol swabs [Alcohol Prep Pads] Pads, Medicated 1 pad topical DAILY 90 Days Qty: 100 3RF simvastatin 5 mg tablet 5 mg PO DAILY 90 Days Qty: 90 3RF (DME) FreeStyle Precision Peter Strips Strip See Rx Instructions .ROUTE .MEDSUPPLY Qty: 10 Rx Instructions: As directed (DME) FreeStyle Roe 2 Sensor Kit See Rx Instructions .Route Qty: 2 5RF Rx Instructions: As directed change every 2 wks metformin 1,000 mg tablet 1,000 mg PO BID Qty: 180 2RF Trulicity 4.5 mg/0.5 mL pen injector 4.5 mg subcut QWEEK Qty: 2 3RF (DME) blood-glucose meter [FreeStyle Lite Meter] Kit See Rx Instructions .ROUTE .MEDSUPPLY Qty: 1 0RF Rx Instructions: As directed (DME) pen needle, diabetic [BD Raegan 2nd Gen Pen Needle] 32 gauge x 5/32 needle See Rx Instructions .Route Qty: 30 11RF Rx Instructions: As directed once daily Referrals: Eduardo Sheldon PA-C [Primary Care Provider] - 03/16/23
[2023-03-14] MEDS: 0.9 % Sodium Chloride 1,000 ML 999 ML IV (01:13)
[2023-03-14 01:15] LABS: Ethanol < 10 mg/dL
[2023-03-14 01:31] LABS: D Dimer High Sensitivity < 150 NG/ML
[2023-03-14 01:36] LABS: Troponin-I High Sensitivity < 2.7 ng/L (<3.5-35.0)
[2023-03-14 01:56] VITALS: BP 103/54; PULSE 59; RESP 17; TEMP 36.7; O2SAT 100
[2023-03-14 03:48] VITALS: BP 107/55; PULSE 67; RESP 17; O2SAT 97
== END 2023-03-14 03:58 | disposition home or self-care (01) ==
PROVIDERS: Emergency Provider Emergency Medicine Emergency Medical Services; PCP Physician Assistant
DX: R55 Syncope and collapse (principal); R42 Dizziness and giddiness; I49.3 Ventricular premature depolarization; Z79.899 Other long term (current) drug therapy
CPT/HCPCS: 36415; 80053; 80307; 84484; 85025; 85379; 93005; 99284; 99285

== ENCOUNTER 2023-04-06 09:02 | Outpatient (AMB) | payer OTHER, SELFPAY ==
[2023-04-06 09:10] VITALS: BMI 36.1
--- NOTE | 2023-04-06 09:10 | A.OFFVIS_ITS ---
Intake VS Expanded 04/06/23 09:10 Height 5 ft 5 in Weight 216 lb 11.43 oz BMI 36.1 Intake Visit Reasons: DM/ CONFIRMED Allergies No Known Allergies [No Known Allergies*] Allergy (Verified 02/17/23 08:04) HPI Nutrition Presentation Details Pt presents for MNT follow up for T2DM Pt reports working on reducing portion sizes of simple sugars following healthy plate method at dinner time food frequency fruits /d: 0-2 vegetables: 4 serving/d dairy: 6 servings/d protein foods: poultry/eggs/beef fried foods : 3 times/wk physical activity: bikes 2 times/wk ETOH: declined to answer, mentioned he is considering attending AA Pt reports he is followed by a mental health care provider on a weekly basis Pt reports not monitoring bg. He reports taking his DM meds: Tresiba 36 units/day Trulicity 4.5 m/wk Metformin 1000 mg BID Most Recent Diabetes Results: Creatinine 1.00 mg/dL (0.5-1.4) 03/13/23 Blood Urea Nitrogen 15 mg/dL (9-16) 03/13/23 Sodium 140 mmol/L (135-145) 03/13/23 Potassium 3.7 mmol/L (3.3-5.1) 03/13/23 Chloride 103 mmol/L (96-108) 03/13/23 Carbon Dioxide 29 mmol/L (22-29) 03/13/23 Calcium 9.2 mg/dL (8.4-10.2) 03/13/23 AST 18 U/L (5-37) 03/13/23 ALT 18 U/L (0-40) 03/13/23 Total Protein 7.3 g/dL (6.5-8.0) 03/13/23 Albumin 4.4 g/dL (3.5-5.0) 03/13/23 [facility] Medical History Tinea pedis Tinea Obesity due to excess calories Balanitis Other obsessive-compulsive disorder Asthma, exercise induced Type 2 diabetes mellitus with hyperglycemia Surgical History No pertinent past surgical history Family History Father No problems noted. Mother Diabetes mellitus Paternal Grandmother Diabetes mellitus Maternal Grandfather Diabetes mellitus Social History Household Members: Spouse and Children Housing: Apartment Alcohol intake: current Alcohol intake frequency: holidays/special occasions only Alcohol type: hard liquor Patient Tobacco Use Status: Never used Tobacco e-Cigarette/Vaping Use: Never Used Second Hand Smoke Exposure: No service: No Current occupational status: employed Cognitive needs: No Hearing needs: No Vision needs: No Assessment & Plan Assessment & Plan (1) Type 2 diabetes mellitus with hyperglycemia: Code(s): E11.65 - Type 2 diabetes mellitus with hyperglycemia Qualifiers: Diabetes mellitus shelter insulin use: with termite control servicer use Qualified Code(s): E11.65 - Type 2 diabetes mellitus with hyperglycemia; Z79.4 - termite control servicer (current) use of insulin Plan Noted A1c at 6.5% on 02/2023 wt: 100 kg (98 kg on 04/2023) Est kcal needs as per MSJ: 2350 (40% carb, 30% protein/fat) Est fluid needs as per 25-30 ml/d: 2511 - 3000 Est prot per day as per 1 g/kg bw: 98 Recommend fiber intake : 8-10 g per day and gradually increase to 35-38 g or as tolerated Recommend sodium intake per day : less than 2000 mg Educated patient on: ( R = reviewed V = verbalizes understanding N/R = needs review N/A = not applicable * Food sources of carbohydrate, adequate serving sizes and its role in various health conditions: R V * Differences between complex carbohydrates a simple carbohydrates, role of fiber in diet: R V * Differences between types of fats and role in diet (mono on saturated fat fatty acids, saturated fatty acids, trans fats): R * Food sources of sodium in salt and healthy modifications for heart health in kidney health: R * Vitamins and minerals: R * Healthy plate method concept: R V * Physical activity: Benefits a precaution: R V * ETOH intake and risks associated with ETOH (fatty liver, hypo/hyperglycemia, dependency) Patient Instructions: Abstain from alcohol Follow healthy plate method at dinner 5-6 times a week Aim at consuming 60-90 g of protein per day monitor your blood sugar fasting and 2 hours after a meal , monitor your blood sugar for hypoglycemia (treat low blood sugar (if less than 70) by following ruleof 15 (have 1/2 cup of juice , wait 15 minutes and re check your blood sugar), report low blood sugar events to your doctor for further assessment Coding Level of Care Code Nutr Indiv Subseq (08310) Diagnoses Type 2 diabetes mellitus with hyperglycemia, with long-term current use of insulin E11.65; Z79.4 Diabetes mellitus shelter insulin use: with termite control servicer use Time Spent (min) 30
== END 2023-04-06 09:56 | disposition home or self-care (01) ==
PROVIDERS: PCP Physician Assistant; Visit Provider Dietitian, Registered
DX: E11.65 Type 2 diabetes mellitus with hyperglycemia (principal); Z79.4 Long term (current) use of insulin

== ENCOUNTER → 2023-04-06 09:02 | Outpatient (BNVA) | payer OTHER, SELFPAY | PROVIDERS: PCP Physician Assistant; Visit Provider Dietitian, Registered | DX: E11.65 Type 2 diabetes mellitus with hyperglycemia (principal); Z79.4 Long term (current) use of insulin; Z71.3 Dietary counseling and surveillance | CPT/HCPCS: 97803 ==

== ENCOUNTER 2023-04-15 13:15 | Outpatient (AMB) | payer OTHER, SELFPAY ==
[2023-04-15 13:18] VITALS: BP 122/78; PULSE 76; TEMP 36.6; O2SAT 98; BMI 38.6
--- NOTE | 2023-04-15 13:18 | MHC.OFFWIV ---
Intake Vital Signs 04/15/23 13:18 Height 5 ft 3 in Weight 218 lb BMI 38.6 BP 122/78 Blood Pressure Location Lt brachial Position Sitting Pulse 76 Pulse Source Pulse Oximeter Temp 97.8 F Temp Source Temporal Artery Scan Pulse Oximetry (%) 98 Oxygen Delivery Method Room Air Intake Visit Reasons: EST/genital concerns(lobby) Intake Note: pt is here for c/o genital concerns, patient states he had yeast infection months ago and then had bv over 6 month left without treatment an hes concerned now Patient Tobacco Use Status: Never used Tobacco Allergies No Known Allergies [No Known Allergies*] Allergy (Verified 04/15/23 13:20) Do you need a note to return to daycare/school/sports/work: Yes HPI HPI Comments History of Present Illness Details 22-year-old male history of poorly controlled diabetes that presents for foul smell in the groin region. Patient states that his history of yeast infections as well as his had BV. OS several weeks to months he has check Q-tips of cleaning get his sugar under control but noticed smell underneath the foreskin. This was described as a fishy odor with a white discharge. Denies any pain burning with urination rash in the perineum fever chills. [facility] Medical History Tinea pedis Tinea Obesity due to excess calories Balanitis Other obsessive-compulsive disorder Asthma, exercise induced Type 2 diabetes mellitus with hyperglycemia Surgical History No pertinent past surgical history Family History Father No problems noted. Mother Diabetes mellitus Paternal Grandmother Diabetes mellitus Maternal Grandfather Diabetes mellitus Social History Household Members: Spouse and Children Housing: Apartment Alcohol intake: current Alcohol intake frequency: holidays/special occasions only Alcohol type: hard liquor Patient Tobacco Use Status: Never used Tobacco e-Cigarette/Vaping Use: Never Used Second Hand Smoke Exposure: No service: No Current occupational status: employed Cognitive needs: No Hearing needs: No Vision needs: No Review of Systems Details: Genital fishy odor smell white discharge Physical Exam Vital Signs: Last Vital Signs Temp 97.8 F 04/15/23 13:18 Pulse 76 04/15/23 13:18 BP 122/78 04/15/23 13:18 Pulse Ox 98 04/15/23 13:18 Oxygen Delivery Method Room Air 04/15/23 13:18 BMI result Body Mass Index 38.6 Const General: healthy appearing, comfortable, no acute distress and alert Orientation/consciousness: patient oriented x3 Limitations: no limitations HEENT Head: Yes normal to inspection Ears: hearing grossly normal bilaterally Resp Effort & Inspection: normal respiratory effort and able to speak in complete sentences Cardio Rate: regular rate Other: Foreskin pulled back show no evidence of discharge rashes or lesions no swelling erythema Skin General skin exam: no rashes or lesions noted Neuro General: patient oriented x3 Extrem General: Yes normal to inspection Assessment & Plan Assessment & Plan (1) 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 signs and symptoms consistent with Balanoposthitis? will treat w/ clotrimazole cream and recommend good hygiene. Discharge instructions, follow up and treatment are discussed with patient in my usual fashion. Alternatives in treatment are also discussed. The patient will return for worsening symptoms or as needed. Advised that any labs/imaging ordered will be followed up on and contact made if further treatment needed. Counseled that patient's condition may require further evaluation and/or treatment. Symptoms of concern for worsening disorder discussed in detail in my customary manner. Patient does verbalize understanding of the plan, there are no apparent barriers to communication. The patient is given the opportunity to ask questions and have them answered to his/her satisfaction Medications: New clotrimazole 1% 1 appl topical BID 30 grams 0RF Coding Level of Care Code Est Pt Level 3 (53952) Diagnoses Balanoposthitis N47.6
== END 2023-04-15 14:07 | disposition home or self-care (01) ==
PROVIDERS: PCP Physician Assistant; Visit Provider Physician Assistant
DX: N47.6 Balanoposthitis (principal)
CPT/HCPCS: 99213

== ENCOUNTER 2023-09-09 07:23 | Outpatient (REF) | payer OTHER, SELFPAY ==
[2023-09-09 07:56] LABS: Hematocrit 49.1 % (42.0-52.0); Hemoglobin 16.8 g/dl (14.0-18.0); Mean Corpuscular HGB Conc 34.2 g/dl (31.0-36.0); Mean Corpuscular Hemoglobin 31.1 pg (27.0-33.0); Mean Corpuscular Volume 90.9 fL (80.0-98.0); Mean Platelet Volume 12.1 fL (9.4-12.4); Platelet Count 200 X10*3/uL (160-400); Red Cell Distribution Width 12.3 % (11.0-16.0); White Blood Count 12.3 X10*3/uL (4.8-10.8)
[2023-09-09 08:14] LABS: Estimated Average Glucose 263 mg/dL; Hemoglobin A1c % 10.8 % (<6.0)
[2023-09-09 08:22] LABS: Alanine Aminotransferase 27 U/L (0-40); Albumin Level 4.3 g/dL (3.5-5.0); Alkaline Phosphatase 97 U/L (39-117); Anion Gap 11 (12-20); Aspartate Amino Transferase 13 U/L (5-37); Bilirubin Total 1.7 mg/dL (0.0-1.0); Blood Urea Nitrogen 11 mg/dL (9-16); Calcium 9.1 mg/dL (8.4-10.2); Carbon Dioxide 30 mmol/L (22-29); Chloride 100 mmol/L (96-108); Cholesterol 194 mg/dL (<200); Estimated Glomerular Filt Rate > 60; Glucose Fasting 319 mg/dL (60-99); HDL Cholesterol 42 mg/dL (>40); LDL Cholesterol Calculated 90 mg/dL (<100); Potassium 4.3 mmol/L (3.3-5.1); Sodium 137 mmol/L (135-145); Total Protein 7.3 g/dL (6.5-8.0); Triglycerides 313 mg/dL (<150)
== END 2023-09-09 07:24 | disposition home or self-care (01) ==
LOC: HO.LAB 07:23
PROVIDERS: PCP Physician Assistant; Visit Provider Physician Assistant
DX: E78.2 Mixed hyperlipidemia (principal); E11.65 Type 2 diabetes mellitus with hyperglycemia; Z79.4 Long term (current) use of insulin
CPT/HCPCS: 36415; 80053; 80061; 83036; 85027

== ENCOUNTER 2023-09-09 08:16 | Outpatient (AMB) | payer OTHER, SELFPAY ==
--- NOTE | 2023-09-09 09:11 | A.OFFPC_ITS ---
Vital Signs 09/09/23 09:16 Height 5 ft 3 in Weight 215 lb 6 oz BMI 38.1 BP 114/68 Blood Pressure Location Lt brachial Position Sitting Pulse 95 Pulse Source Pulse Oximeter Pulse Oximetry (%) 97 Oxygen Delivery Method Room Air Intake Visit Reasons: F/U Intake Note: Pt is here for DMII F/U and lab results. Merchandise Planning Manager Required: No Accompanied by: Self / Same As Patient Allergies No Known Allergies [No Known Allergies*] Allergy (Verified 09/09/23 09:31) Medication List - Last Reconciled 09/09/23 by Eduardo Sheldon PA-C albuterol sulfate 90 mcg/actuation (ProAir HFA) 2 puffs inhalation Q4-6H PRN alcohol swabs (Alcohol Prep Pads) 1 pad topical DAILY 90 days blood sugar diagnostic As directed blood sugar diagnostic (FreeStyle Lite Strips) As directed three times a day blood-glucose meter (FreeStyle Lite Meter kit) As directed bupropion HCl 150 mg PO QAM clotrimazole 1% 1 appl topical BID dulaglutide (Trulicity) 4.5 mg subcut QWEEK flash glucose sensor (FreeStyle Roe 2 Sensor kit) As directed change every 2 w ks gabapentin 100 mg PO BID insulin degludec (Tresiba FlexTouch U-200 insulin) 56 units subcut BEDTIME lancets (FreeStyle Lancets) Three times a day metformin 1,000 mg PO BID pen needle, diabetic (BD Raegan 2nd Gen Pen Needle) As directed once daily simvastatin 5 mg PO DAILY 90 days Tobacco use date assessed: 08/13/22 HPI F/U HPI Details Patient is a 23-year-old male here today for a follow-up visit. Patient has a past medical history significant for type 2 diabetes, obesity, asthma, Concern--> has been dealing with anxiety and depression due to not having a job. 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 Unable to get car due to uncontrolled diabetes and on insulin regime. Unfortunately lost follow-up with his contract management specialist as his diabetes was controlled in the summer of 2022. ... Type 2 diabetes: Has not been following up with endocrinology and continues on highest dose of Trulicity 4.5mg once weekly, insulin 56 units daily, metformin 1000 b.i.d.. Unfortunately has been having trouble getting Trulicity as with the pharmacy, continues to forget to take metformin twice a day also He does report some dietary indiscretion which all has led to uncontrolled type 2 diabetes. He did have eye exam in January of 2023 without any significant retinopathy. No reports of neuropathy symptoms. Today's A1c at 10.8 . Obesity: Patient does understand his BMI is over 30 and has been working on better eating habits and being more physically active to reduce his weight. .. Asthma: Has been stable with PRN use of his JUANITA inhaler. He does report his asthma is worse upon physical activity thus will try to use his asthma inhaler just before physical activity. .. Anxiety : Has been working with a mental health therapist and a psychiatrist whom has been managing his mental health medications. Continues on Wellbutrin and gabapentin which has been effective for his anxiety. [facility] Medical History Tinea pedis Tinea Obesity due to excess calories Balanitis Other obsessive-compulsive disorder Asthma, exercise induced Type 2 diabetes mellitus with hyperglycemia Surgical History No pertinent past surgical history Family History Father No problems noted. Mother Diabetes mellitus Paternal Grandmother Diabetes mellitus Maternal Grandfather Diabetes mellitus Social History Household Members: Spouse and Children Housing: Apartment Alcohol intake: current Alcohol intake frequency: holidays/special occasions only Alcohol type: hard liquor Patient Tobacco Use Status: Never used Tobacco e-Cigarette/Vaping Use: Never Used Second Hand Smoke Exposure: No service: No Current occupational status: employed Cognitive needs: No Hearing needs: No Vision needs: No Questionnaire PHQ-9 Over the last 2 weeks, how often have you been bothered by any of the following problems? 1. Little interest or pleasure in doing things: nearly every day 2. Feeling down, depressed, or hopeless: more than half the days 3. Trouble falling or staying asleep, or sleeping too much: nearly every day 4. Feeling tired or having little energy: more than half the days 5. Poor appetite or overeating: several days 6. Feeling bad about yourself - or that you are a failure or have let yourself or your family down: more than half the days 7. Trouble concentrating on things, such as reading the newspaper or watching television: nearly every day 8. Moving or speaking so slowly that other people could have noticed. Or the opposite - being so fidgety or restless that you have been moving around a lot more than usual: more than half the days 9. Thoughts that you would be better off or of hurting yourself in some way: not at all Total score: 18 Depression Screening Interpretation: Positive Depression Screening Follow-up: Existing condition and In treatment Depression Screening Done: Yes 27949 - PHQ-9 Billing: Yes Source: Developed by Drs. Iftikhar Yen, Analy Kenny, Saulo Martinez and colleagues, with an educational brigette from [employer]. Thrive Questionnaire Date Thrive assessed: 09/09/23 I am a: Patient What is your living situation today?: I have a place to live, but I am worried about losing it in the future Within the past 12 months, did the food you bought not last and you didn't have the money to get more?: Sometimes True Within the past 12 months, did you worry whether your food would run out before you got money to buy more?: Sometimes True Do you have trouble paying for medicines?: No Do you have trouble getting transportation to medical appointments?: No Do you have trouble paying your heating and electricity bill?: No Do you have trouble taking care of your child, family member or friend?: No Do you have trouble with day-to-day activities such as bathing, preparing meals, shopping, managing finances, etc.?: No Are you currently unemployed and looking for a job?: No Are you interested in more education?: No Please select the resources that you would like help with: Housing/Intermediate, Food, Transportation and Utilities Currently or been in a relationship where the following occur: no concerns reported THRIVE Score: 3 AUDIT C Alcohol Use Questionnaire (AUDIT-C) 1. How often do you have a drink containing alcohol?: 2-4 times a month 2. How many drinks containing alcohol do you have on a typical day when you are drinking?: 10 or more 3. How often do you have six or more drinks on one occasion?: Less than monthly Total Score: 7 ABDIRASHID-7 AMB Questionnaire ABDIRASHID-7 Date ABDIRASHID - 7 assessed: 09/09/23 Feeling nervous, anxious, or on edge: 3 = Nearly every day Not being able to stop or control worryin = Nearly every day Worrying too much about different things: 3 = Nearly every day Trouble relaxin = Nearly every day Being so restless that it is hard to sit still: 2 = More than half the days Becoming easily annoyed or irritable: 3 = Nearly every day Feeling afraid as if something awful might happen: 2 = More than half the days Total ABDIRASHID-7 score (0-4 normal; 5-9 mild; 10-14 moderate; 15-21 severe): 19 Source: Developed by Drs. Iftikhar Yen, Analy Kenny, Saulo Martinez and colleagues, with an educational brigette from [employer]. ABDIRASHID-7 Assessment Billing ABDIRASHID-7 Assessment Tool: ABDIRASHID-7 Assessment 26230 Review of Systems Const Denies headache(s) Eyes Denies loss of vision ENT Denies vertigo, Denies dizziness, Denies headache(s) and Denies sore throat Card Denies chest pain, Denies leg edema and Denies lightheadedness Resp Denies cough, Denies hemoptysis and Denies wheezing GI Denies abdominal pain, Denies melena, Denies constipation, Denies diarrhea and Denies vomiting Denies dysuria, Denies urinary frequency and Denies urinary urgency Musc Denies arthralgias, Denies joint swelling, Denies numbness and Denies tingling Neuro Denies Abnormal speech present, Denies behavioral changes, Denies vertigo, Denies dizziness, Denies headache(s), Denies loss of vision, Denies memory loss, Denies numbness and Denies tingling Psych Denies anxiety, Denies behavioral changes, Denies depression, Denies memory loss and Denies panic attacks Cristino/Lymph Denies easy bleeding and Denies easy bruising Aller/Immun Denies wheezing Physical exam (Primary Care) Vital Signs: Last Vital Signs Pulse 95 09/09/23 09:16 BP 114/68 09/09/23 09:16 Pulse Ox 97 09/09/23 09:16 Oxygen Delivery Method Room Air 09/09/23 09:16 BMI result Body Mass Index 38.1 BMI Assessment/Plan discussion: High Tobacco/Smoking Status: Tobacco use Status Tobacco use date assessed 08/13/22 09/09/23 09:11 Patient Tobacco Use Status Never used Tobacco 09/09/23 09:11 e-Cigarette/Vaping Use Never Used 09/09/23 09:11 PHQ-9: PHQ-9 Score PHQ-9: Total score 18 09/09/23 09:35 Depression Screening Interpretation: Positive Depression Screening Follow-up: Existing condition and In treatment Thrive Assessment: Date of Thrive Assessment Date Thrive assessed 09/09/23 09/09/23 09:26 Currently or been in a relationship where the following occur: no concerns reported Const General: healthy appearing, no acute distress, alert and awake Nutritional Appearance: well nourished Orientation/consciousness: oriented to person, oriented to place and oriented to time HENMT Ears: TM's normal bilaterally General nose exam: Normal nasal mucous membranes and turbinates present Eyes Conjunctivae: conjunctivae normal Sclerae: sclerae normal Pupils: Equal, round and reactive pupils present Neck Neck: Yes no lymphadenopathy and Yes no JVD Thyroid: Thyroid normal Carotids: no bruits Resp Effort & Inspection: normal respiratory effort and not tachypneic Auscultation: no crackles, no rales, no rhonchi and no wheezes Cardio Rate: regular rate Rhythm: regular rhythm Heart sounds: no murmurs and normal S1 and S2 GI Palpation (GI): Soft to palpation, nontender, no hepatomegaly and no splenomegaly Auscultation: normal bowel sounds Skin General skin exam: no rashes or lesions noted and dry skin Neuro General: oriented to person, oriented to place and oriented to time Cranial nerves: Yes Equal, round and reactive pupils present Speech: No Abnormal speech present Gait exam (Neuro): Normal gait present Motor exam (neuro): no tremor noted Extrem Right upper extremity: full ROM Left upper extremity: full ROM Right lower extremity: full ROM; no edema Left lower extremity: full ROM; no edema Psych Mental Status: mental status grossly normal Speech and movement: Normal speech and movement present Affect: normal affect Attitude: cooperative Thought process: Normal thought process present Assessment and Plan Assessment & Plan (1) Type 2 diabetes mellitus with hyperglycemia: Code(s): E11.65 - Type 2 diabetes mellitus with hyperglycemia Qualifiers: Diabetes mellitus usp insulin use: with usp use Qualified Code(s): E11.65 - Type 2 diabetes mellitus with hyperglycemia; Z79.4 - FDC (current) use of insulin Plan: Patient's type 2 diabetes suboptimally controlled . Today's A1c at 10.8. He does report dietary indiscretion and has not been regularly taking his metformin. He does have trouble getting Trulicity from time to time from his pharmacy due to availability.. This has led to worsening in his glycemic controlled . He does not further follow-up with endocrinology Will try to transition him to Ozempic 1 mg weekly. He promises to start taking metformin a 1000 b.i.d. regularly. He will continue to work on low carbohydrate diet, continue with Education from life skills educator and account resolution specialist. Goal A1c to be below 7.0 (2) Asthma, exercise induced: Code(s): J45.990 - Exercise induced bronchospasm Plan: Patient reports his asthma has been fairly well controlled with the exception of physical activity. Does use albuterol inhaler from time to time. Advised to uses albuterol inhaler just before physical activity. (3) MDD (major depressive disorder), recurrent episode, moderate: Code(s): F33.1 - Major depressive disorder, recurrent, moderate Plan: Patient's PHQ-9 score positive for depression which has been existing condition for him. He now has a mental health therapist and a psychiatrist who was working with him. --> of note he has currently not working as he is not able to get a DOT card which has caused him more anxiety and depression. (4) Obese: Code(s): E66.9 - Obesity, unspecified Qualifiers: Body mass index: BMI 36.0-36.9 Obesity classification: adult class 2 (BMI 35 - 39.9) Obesity type: due to excess calories Serious obesity comorbidity presence: with serious comorbidity Qualified Code(s): E66.01 - Morbid (severe) obesity due to excess calories; Z68.36 - Body mass index [BMI] 36.0-36.9, adult Plan: Patient does understand his BMI is over 30 will work on being more physically active and adapting to better eating habits to reduce his weight (5) HLD (hyperlipidemia): Code(s): E78.5 - Hyperlipidemia, unspecified Qualifiers: Hyperlipidemia type: mixed hyperlipidemia Qualified Code(s): E78.2 - Mixed hyperlipidemia Plan: Will continue him on his current simvastatin dose with goal LDL to remain below 100. Orders: Orders Comprehensive [place]. Panel Fast 3 Months E11.65 - Type 2 diabetes mellitus with hyperglycemia, Z79.4 - FDC (current) use of insulin Medications: New semaglutide (Ozempic) 1 mg (0.75 mL) subcut QWEEK 4 weeks 3 mL 3RF E11.65 - Type 2 diabetes mellitus with hyperglycemia, Z79.4 - FDC (current) use of insulin semaglutide (Ozempic) 1 mg (0.75 mL) subcut QWEEK 4 weeks 3 mL 3RF E11.65 - Type 2 diabetes mellitus with hyperglycemia, Z79.4 - horticultural manager (current) use of insulin blood-glucose meter,continuous (FreeStyle Roe 3 [place]) As directed 1 ea 0RF E11.65 - Type 2 diabetes mellitus with hyperglycemia, Z79.4 - FDC (current) use of insulin Changed From insulin degludec (Tresiba FlexTouch U-200 insulin) 56 units subcut BEDTIME E11.65 - Type 2 diabetes mellitus with hyperglycemia, Z79.4 - FDC (current) use of insulin To insulin degludec (Tresiba FlexTouch U-200 insulin) 56 units (0.28 mL) subcut BEDTIME 30 days 9 mL 3RF E11.65 - Type 2 diabetes mellitus with hyperglycemia, Z79.4 - horticultural manager (current) use of insulin Refilled simvastatin 5 mg PO DAILY 90 days 90 tabs 3RF E78.2 - Mixed hyperlipidemia metformin 1,000 mg PO BID 180 tabs 3RF E11.65 - Type 2 diabetes mellitus with hyperglycemia, Z79.4 - FDC (current) use of insulin metformin 1,000 mg PO BID 180 tabs 3RF E11.65 - Type 2 diabetes mellitus with hyperglycemia, Z79.4 - FDC (current) use of insulin insulin degludec (Tresiba FlexTouch U-200 insulin) 56 units (0.28 mL) subcut BEDTIME 30 days 9 mL 3RF E11.65 - Type 2 diabetes mellitus with hyperglycemia, Z79.4 - horticultural manager (current) use of insulin simvastatin 5 mg PO DAILY 90 days 90 tabs 3RF E78.2 - Mixed hyperlipidemia flash glucose sensor (FreeStyle Roe 2 Sensor kit) As directed change every 2 wks 2 ea 5RF E11.65 - Type 2 diabetes mellitus with hyperglycemia, Z79.4 - FDC (current) use of insulin Coding Level of Care Code Est Pt Level 4 (60777) Diagnoses Type 2 diabetes mellitus with hyperglycemia, with long-term current use of insulin E11.65; Z79.4 Diabetes mellitus usp insulin use: with straw hat brim raiser operator use Asthma, exercise induced J45.990 MDD (major depressive disorder), recurrent episode, moderate F33.1 Class 2 severe obesity due to excess calories with serious comorbidity and body mass index (BMI) of 36.0 to 36.9 in adult E66.01; Z68.36 Body mass index: BMI 36.0-36.9 Obesity classification: adult class 2 (BMI 35 - 39.9) Obesity type: due to excess calories Serious obesity comorbidity presence: with serious comorbidity Mixed hyperlipidemia E78.2 Hyperlipidemia type: mixed hyperlipidemia Additional Codes ABDIRASHID-7 Assessment Billing - ABDIRASHID-7 Assessment Tool: ABDIRASHID-7 Assessment 12360 ([id number])
[2023-09-09 09:16] VITALS: BP 114/68; PULSE 95; O2SAT 97; BMI 38.1
== END 2023-09-09 10:05 | disposition home or self-care (01) ==
PROVIDERS: PCP Physician Assistant; Visit Provider Physician Assistant
DX: E11.65 Type 2 diabetes mellitus with hyperglycemia (principal); Z79.4 Long term (current) use of insulin; E66.01 Morbid (severe) obesity due to excess calories; Z68.36 Body mass index [BMI] 36.0-36.9, adult; F33.1 Major depressive disorder, recurrent, moderate; J45.990 Exercise induced bronchospasm; E78.2 Mixed hyperlipidemia
CPT/HCPCS: 99214

== ENCOUNTER 2024-09-21 12:50 | Outpatient (AMB) | payer OTHER, SELFPAY ==
--- NOTE | 2024-09-21 13:03 | A.OFFPC_ITS ---
Vital Signs 09/21/24 13:07 Height 5 ft 3 in Weight 201 lb 6 oz BMI 35.7 BP 112/82 Blood Pressure Location Lt brachial Position Sitting Pulse 58 Pulse Source Pulse Oximeter Temp 97.3 F Temp Source Temporal Artery Scan Pulse Oximetry (%) 96 Oxygen Delivery Method Room Air Intake Visit Reasons: DOT/DM Assessment form Technical Services Rep Required: No Accompanied by: Self / Same As Patient Allergies No Known Allergies [No Known Allergies*] Allergy (Verified 09/21/24 13:24) Medication List - Last Reconciled 09/21/24 by Eduardo Sheldon PA-C albuterol sulfate 90 mcg/actuation 1 inh inhalation QID PRN 30 days alcohol swabs (Alcohol Prep Pads) 1 pad topical DAILY 90 days blood sugar diagnostic As directed blood sugar diagnostic (FreeStyle Lite Strips) As directed three times a day blood-glucose meter (FreeStyle Lite Meter kit) As directed blood-glucose meter,continuous (FreeStyle Roe 3 [place]) As directed blood-glucose sensor (FreeStyle Roe 3 Sensor device) As directed bupropion HCl XL 150 mg PO QAM 90 days clotrimazole 1% 1 appl topical BID flash glucose sensor (FreeStyle Roe 2 Sensor kit) As directed change every 2 wks gabapentin 100 mg PO BID insulin degludec (Tresiba FlexTouch U-200 insulin) 80 units (0.4 mL) subcut BEDTIME 30 days lancets (FreeStyle Lancets) Three times a day metformin 1,000 mg PO BID pen needle, diabetic As directed once daily semaglutide (Ozempic) 1 mg (0.75 mL) subcut QWEEK 4 weeks simvastatin 5 mg PO DAILY 90 days Tobacco use date assessed: 09/21/24 Dental Screening Dental Screen Date: 09/21/24 Did you have a dental visit in the last 12 months?: Yes Did you have a dental problem in the last 6 months where you did not have access to dental care?: No Was dental information given to patient?: Patient has dentist HPI DOT/DM Assessment form HPI Details Patient is a 24-year-old male here today for a follow-up visit. Patient has a past medical history significant for type 2 diabetes, obesity, asthma, Concern--> has been dealing with anxiety and depression due to not having a job. 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 Unable to get car due to uncontrolled diabetes and on insulin regime. Unfortunately lost follow-up with his copy preparer as his diabetes was controlled in the summer of 2022. ... Type 2 diabetes: Patient's type 2 diabetes suboptimally controlled, has not be en too compliant with his medication and reports he has had trouble with insurance due to changing jobs, the patient exhibits a Hemoglobin A1c level at 12, significantly exceeding target levels for adequate disease control. He has escalated recently from 58 to 80 units of Tresiba, has been noted in efforts to manage hyperglycemic episodes amid reduced physical activity. He does admit to significant polyuria occurs, nearly every four to five minutes, consistent with poor glycemic management. The patient inconsistently follows the prescribed metformin regimen of 1000 mg twice daily and adheres sporadically to weekly Ozempic injections. In his interested in reestablishing care with the copy preparer. He promises to start being more adherent to his diabetic med regime Has upcoming appointment with hot kettle tender . Obesity: Patient does understand his BMI is over 30 and has been working on better eating habits and being more physically active to reduce his weight. .. Asthma: Has been stable with PRN use of his JUANITA inhaler. He does report his asthma is worse upon physical activity thus will try to use his asthma inhaler just before physical activity. .. Anxiety : Was previously seeing a mental health therapist and a psychiatrist.. He reports he has not been taking Wellbutrin or gabapentin. He would like to be set back up with mental health therapy. He is willing to restart Wellbutrin for his anxiety [facility] Medical History Tinea pedis Tinea Obesity due to excess calories Balanitis Other obsessive-compulsive disorder Asthma, exercise induced Type 2 diabetes mellitus with hyperglycemia Surgical History No pertinent past surgical history Family History Father No problems noted. Mother Diabetes mellitus Paternal Grandmother Diabetes mellitus Maternal Grandfather Diabetes mellitus Social History Household Members: Spouse and Children Housing: Apartment Alcohol intake: current Alcohol intake frequency: holidays/special occasions only Alcohol type: hard liquor Patient Tobacco Use Status: Never used Tobacco e-Cigarette/Vaping Use: Never Used Second Hand Smoke Exposure: No service: No Current occupational status: employed Cognitive needs: No Hearing needs: No Vision needs: No Questionnaire PHQ-9 Over the last 2 weeks, how often have you been bothered by any of the following problems? 1. Little interest or pleasure in doing things: not at all 2. Feeling down, depressed, or hopeless: not at all 3. Trouble falling or staying asleep, or sleeping too much: not at all 4. Feeling tired or having little energy: not at all 5. Poor appetite or overeating: not at all 6. Feeling bad about yourself - or that you are a failure or have let yourself or your family down: not at all 7. Trouble concentrating on things, such as reading the newspaper or watching television: not at all 8. Moving or speaking so slowly that other people could have noticed. Or the opposite - being so fidgety or restless that you have been moving around a lot more than usual: not at all 9. Thoughts that you would be better off or of hurting yourself in some way: not at all Total score: 0 Depression Screening Interpretation: Negative Depression Screening Done: Yes 50991 - PHQ-9 Billing: Yes Source: Developed by Drs. Iftikhar Yen, Analy Kenny, Saulo Martinez and colleagues, with an educational brigette from [employer]. Thrive Questionnaire Date Thrive assessed: 09/21/24 I am a: Patient What is your living situation today?: I have a steady place to live Within the past 12 months, did the food you bought not last and you didn't have the money to get more?: Never true Within the past 12 months, did you worry whether your food would run out before you got money to buy more?: Never true Do you have trouble paying for medicines?: No Do you have trouble getting transportation to medical appointments?: No Do you have trouble paying your heating and electricity bill?: No Do you have trouble taking care of your child, family member or friend?: No Do you have trouble with day-to-day activities such as bathing, preparing meals, shopping, managing finances, etc.?: No Are you currently unemployed and looking for a job?: No Are you interested in more education?: No Please select the resources that you would like help with: None Currently or been in a relationship where the following occur: No concerns reported THRIVE Score: 0 AUDIT C Alcohol Use Questionnaire (AUDIT-C) 1. How often do you have a drink containing alcohol?: 2-4 times a month 2. How many drinks containing alcohol do you have on a typical day when you are drinking?: 10 or more 3. How often do you have six or more drinks on one occasion?: Less than monthly Total Score: 7 ABDIRASHID-7 AMB Questionnaire ABDIRASHID-7 Date ABDIRASHID - 7 assessed: 09/21/24 Feeling nervous, anxious, or on edge: 3 = Nearly every day Not being able to stop or control worryin = Nearly every day Worrying too much about different things: 3 = Nearly every day Trouble relaxin = Nearly every day Being so restless that it is hard to sit still: 2 = More than half the days Becoming easily annoyed or irritable: 3 = Nearly every day Feeling afraid as if something awful might happen: 2 = More than half the days Total ABDIRASHID-7 score (0-4 normal; 5-9 mild; 10-14 moderate; 15-21 severe): 19 Source: Developed by Drs. Iftikhar Yen, Analy Kenny, Saulo Martinez and colleagues, with an educational brigette from [employer]. ABDIRASHID-7 Assessment Billing ABDIRASHID-7 Assessment Tool: ABDIRASHID-7 Assessment 78903 Review of Systems Const Denies headache(s) Eyes Denies loss of vision ENT Denies vertigo, Denies dizziness, Denies headache(s) and Denies sore throat Card Denies chest pain, Denies leg edema and Denies lightheadedness Resp Denies cough, Denies hemoptysis and Denies wheezing GI Denies abdominal pain, Denies melena, Denies constipation, Denies diarrhea and Denies vomiting Denies dysuria, Denies urinary frequency and Denies urinary urgency Musc Denies arthralgias, Denies joint swelling, Denies numbness and Denies tingling Neuro Denies Abnormal speech present, Denies behavioral changes, Denies vertigo, Denies dizziness, Denies headache(s), Denies loss of vision, Denies memory loss, Denies numbness and Denies tingling Psych Denies anxiety, Denies behavioral changes, Denies depression, Denies memory loss and Denies panic attacks Cristino/Lymph Denies easy bleeding and Denies easy bruising Aller/Immun Denies wheezing Physical exam (Primary Care) Vital Signs: Last Vital Signs Temp 97.3 F 09/21/24 13:07 Pulse 58 09/21/24 13:07 BP 112/82 09/21/24 13:07 Pulse Ox 96 09/21/24 13:07 Oxygen Delivery Method Room Air 09/21/24 13:07 BMI result Body Mass Index 35.7 Tobacco/Smoking Status: Tobacco use Status Tobacco use date assessed 09/21/24 09/21/24 13:12 Patient Tobacco Use Status Never used Tobacco 09/21/24 13:04 e-Cigarette/Vaping Use Never Used 09/21/24 13:04 PHQ-9: PHQ-9 Score PHQ-9: Total score 0 09/21/24 13:50 Depression Screening Interpretation: Negative Thrive Assessment: Date of Thrive Assessment Date Thrive assessed 09/21/24 09/21/24 13:12 Currently or been in a relationship where the following occur: No concerns reported Const General: healthy appearing, no acute distress, alert and awake Nutritional Appearance: well nourished Orientation/consciousness: oriented to person, oriented to place and oriented to time HENMT Ears: TM's normal bilaterally General nose exam: Normal nasal mucous membranes and turbinates present Eyes Conjunctivae: conjunctivae normal Sclerae: sclerae normal Pupils: Equal, round and reactive pupils present Neck Neck: Yes no lymphadenopathy and Yes no JVD Thyroid: Thyroid normal Carotids: no bruits Resp Effort & Inspection: normal respiratory effort and not tachypneic Auscultation: no crackles, no rales, no rhonchi and no wheezes Cardio Rate: regular rate Rhythm: regular rhythm Heart sounds: no murmurs and normal S1 and S2 GI Palpation (GI): Soft to palpation, nontender, no hepatomegaly and no splenomegaly Auscultation: normal bowel sounds Skin General skin exam: no rashes or lesions noted and dry skin Neuro General: oriented to person, oriented to place and oriented to time Cranial nerves: Yes Equal, round and reactive pupils present Speech: No Abnormal speech present Gait exam (Neuro): Normal gait present Motor exam (neuro): no tremor noted Extrem Right upper extremity: full ROM Left upper extremity: full ROM Right lower extremity: full ROM; no edema Left lower extremity: full ROM; no edema Psych Mental Status: mental status grossly normal Speech and movement: Normal speech and movement present Affect: normal affect Attitude: cooperative Thought process: Normal thought process present Results AMB Hemoglobin A1c AMB Hemoglobin A1c 12.3 % Last Edit by LOGAN Esparza on 09/21/24 13:52 Coding Level of Care Code Est Pt Level 4 (45790) Diagnoses Type 2 diabetes mellitus with hyperglycemia, with long-term current use of insulin E11.65; Z79.4 Diabetes mellitus senior living insulin use: with senior living use Left shoulder tendinitis M77.8 MDD (major depressive disorder), recurrent episode, moderate F33.1 Mixed hyperlipidemia E78.2 Hyperlipidemia type: mixed hyperlipidemia Class 1 obesity E66.811 ABDIRASHID (generalized anxiety disorder) F41.1 Additional Codes ABDIRASHID-7 Assessment Billing - ABDIRASHID-7 Assessment Tool: ABDIRASHID-7 Assessment 01740 ([id number]) PHQ-9 - 80149 - PHQ-9 Billing: Yes ([id number]) Assessment & Plan Assessment & Plan (1) Type 2 diabetes mellitus with hyperglycemia: Code(s): E11.65 - Type 2 diabetes mellitus with hyperglycemia Category: Medical Qualifiers: Diabetes mellitus terminal computer operator insulin use: with terminal computer operator use Qualified Code(s): E11.65 - Type 2 diabetes mellitus with hyperglycemia; Z79.4 - nursing home (current) use of insulin Plan: Has been out of diabetic medication due to insurance reasons. Address inadequate glycemic control with optimized Tresiba dosage, integrate Freestyle Roe CGM for better monitoring, and ensure endocrinological follow- up. Goal A1c is to be below 7.0 (2) Left shoulder tendinitis: Code(s): M77.8 - Other enthesopathies, not elsewhere classified Category: Medical Plan: Patient reports left shoulder pain and some decreased range of motion since working in more physically demanding job. He is willing to try anti- inflammatory as needed for his pain. (3) MDD (major depressive disorder), recurrent episode, moderate: Code(s): F33.1 - Major depressive disorder, recurrent, moderate Category: Medical Plan: Patient's PHQ-9 score 0- which depression has been existing condition for him Patient interested in reestablishing care with a mental health therapist. He is willing to restart Wellbutrin to help him with his mental health. (4) HLD (hyperlipidemia): Code(s): E78.5 - Hyperlipidemia, unspecified Category: Medical Qualifiers: Hyperlipidemia type: mixed hyperlipidemia Qualified Code(s): E78.2 - Mixed hyperlipidemia Plan: Will recheck fasting lipid panel to ensure normal total cholesterol and LDL. Goal LDL is to be below 100 (5) Class 1 obesity: Code(s): E66.811 - Obesity, class 1 Category: Medical Plan: Patient does understand his BMI is over 30 will work on being more physically active and adapting to better eating habits to reduce his weight (6) ABDIRASHID (generalized anxiety disorder): Code(s): F41.1 - Generalized anxiety disorder Category: Medical Plan: Patient's ABDIRASHID-7 score positive for anxiety which has been existing condition for him. He is willing to restart Wellbutrin to help him with his anxiety. He is willing to reestablish care with a mental health therapist and eventually psychiatrist. Orders: Orders Comprehensive [place]. Panel Fast Today E11.65 - Type 2 diabetes mellitus with hyperglycemia, Z79.4 - nursing home (current) use of insulin Lipid Panel Today E78.2 - Mixed hyperlipidemia Microalbumin, Random (w Creat) Today E11.65 - Type 2 diabetes mellitus with hyperglycemia, Z79.4 - nursing home (current) use of insulin Complete Blood Count no Diff Today E11.65 - Type 2 diabetes mellitus with hyperglycemia, Z79.4 - long term care administrator (current) use of insulin AMB Hemoglobin A1c Today E11.65 - Type 2 diabetes mellitus with hyperglycemia, Z79.4 - nursing home (current) use of insulin Referrals Counseling Referral F33.1 - Major depressive disorder, recurrent, moderate Endocrinology Referral E11.65 - Type 2 diabetes mellitus with hyperglycemia, Z79.4 - long term care administrator (current) use of insulin Medications: New blood-glucose sensor (FreeStyle Roe 3 Sensor device) As directed 1 ea 6RF E11.65 - Type 2 diabetes mellitus with hyperglycemia, Z79.4 - nursing home (current) use of insulin diclofenac sodium 50 mg PO BID 10 days PRN 20 tabs 0RF pain M25.552 - Pain in left hip, M77.8 - Other enthesopathies, not elsewhere classified albuterol sulfate 90 mcg/actuation 1 inh inhalation QID 30 days PRN 8.5 grams 0RF shortness of breath or wheezing J45.990 - Exercise induced bronchospasm Changed From pen needle, diabetic (BD Raegan 2nd Gen Pen Needle) As directed once daily 30 ea 11RF To pen needle, diabetic As directed once daily 30 ea 11RF From insulin degludec (Tresiba FlexTouch U-200 insulin) 56 units (0.28 mL) subcut BEDTIME 30 days 9 mL 3RF E11.65 - Type 2 diabetes mellitus with hyperglycemia, Z79.4 - long term care administrator (current) use of insulin To insulin degludec (Tresiba FlexTouch U-200 insulin) 80 units (0.4 mL) subcut BEDTIME 30 days 12 mL 3RF E11.65 - Type 2 diabetes mellitus with hyperglycemia, Z79.4 - long term care administrator (current) use of insulin From bupropion HCl XL 150 mg PO QAM F33.1 - Major depressive disorder, recurrent, moderate To bupropion HCl XL 150 mg PO QAM 90 days 90 tabs 1RF F33.1 - Major depressive disorder, recurrent, moderate Refilled metformin 1,000 mg PO BID 180 tabs 3RF E11.65 - Type 2 diabetes mellitus with hyperglycemia, Z79.4 - long term care administrator (current) use of insulin semaglutide (Ozempic) 1 mg (0.75 mL) subcut QWEEK 4 weeks 3 mL 3RF E11.65 - Type 2 diabetes mellitus with hyperglycemia, Z79.4 - long term care administrator (current) use of insulin simvastatin 5 mg PO DAILY 90 days 90 tabs 3RF E78.2 - Mixed hyperlipidemia alcohol swabs (Alcohol Prep Pads) 1 pad topical DAILY 90 days 100 ea 3RF E11.65 - Type 2 diabetes mellitus with hyperglycemia, Z79.4 - nursing home (current) use of insulin blood-glucose meter,continuous (FreeStyle Roe 3 [place]) As directed 1 ea 0RF E11.65 - Type 2 diabetes mellitus with hyperglycemia, Z79.4 - long term care administrator (current) use of insulin Discontinued albuterol sulfate 90 mcg/actuation (ProAir HFA) Discontinued Reason: Doctor's Order 2 puffs inhalation Q4-6H PRN 8.5 grams 0RF shortness of breath or wheezing
[2024-09-21 13:07] VITALS: BP 112/82; PULSE 58; TEMP 36.3; O2SAT 96; BMI 35.7
== END 2024-09-21 13:44 | disposition home or self-care (01) ==
LOC: HO.HMCH 12:50
PROVIDERS: PCP Physician Assistant; Visit Provider Physician Assistant
DX: E11.65 Type 2 diabetes mellitus with hyperglycemia (principal); Z79.4 Long term (current) use of insulin; F33.1 Major depressive disorder, recurrent, moderate; E66.811 Obesity, class 1; Z68.35 Body mass index [BMI] 35.0-35.9, adult; M77.8 Other enthesopathies, not elsewhere classified; E78.2 Mixed hyperlipidemia; F41.1 Generalized anxiety disorder

== ENCOUNTER → 2024-09-21 12:50 | Outpatient (BNVA) | payer OTHER, SELFPAY | PROVIDERS: PCP Physician Assistant; Visit Provider Physician Assistant | DX: E11.65 Type 2 diabetes mellitus with hyperglycemia (principal); Z79.4 Long term (current) use of insulin; M77.8 Other enthesopathies, not elsewhere classified; F33.1 Major depressive disorder, recurrent, moderate; E78.2 Mixed hyperlipidemia; E66.811 Obesity, class 1; F41.1 Generalized anxiety disorder | CPT/HCPCS: 83036; 96127; 99212 ==

== ENCOUNTER 2024-09-25 08:57 | Outpatient (AMB) | payer OTHER, SELFPAY ==
--- NOTE | 2024-09-25 09:01 | MHC.OFFVIS ---
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 Most recent HbA1c: 12.3%, 09/21/2024 Random Glucose- 302 mg/dL, Today [employer] Required: No Accompanied by: Self / Same As Patient Allergies No Known Allergies [No Known Allergies*] Allergy (Verified 09/25/24 09:06) Medication List - Last Reconciled 09/25/24 by Maty Workman PA-C albuterol sulfate 90 mcg/actuation 1 inh inhalation QID PRN 30 days alcohol swabs (Alcohol Prep Pads) 1 pad topical DAILY 90 days blood sugar diagnostic As directed blood sugar diagnostic (FreeStyle Lite Strips) As directed three times a day blood-glucose meter (FreeStyle Lite Meter kit) As directed blood-glucose meter,continuous (FreeStyle Roe [address] [place] [address]) As directed bupropion HCl XL 150 mg PO QAM 90 days clotrimazole 1% 1 appl topical BID diclofenac sodium 50 mg PO BID PRN 10 days gabapentin 100 mg PO BID insulin degludec (Tresiba FlexTouch U-200 insulin) 80 units (0.4 mL) subcut BEDTIME 30 days lancets (FreeStyle Lancets) Three times a day metformin 1,000 mg PO BID pen needle, diabetic As directed once daily HPI HPI T2DM: Details: Patient is a 24-year-old male with a significant past medical history of anxiety, depression, OCD, type 2 diabetes, obesity and hyperlipidemia presenting today for a diabetic consultation. Endo: Last followed with Dr. Blevins for his diabetes and at that well-controlled. He was diagnosed with diabetes around 2019. His last A1c was 12. He is currently on Ozempic 1 mg weekly, Tresiba 80 units at bedtime, and metformin 1000 mg twice a day. Today he states that he has not been at all since May. He states that he is intermittently taking the metformin and every few days taking Tresiba. He is generally noncompliant with his medications. He has not taken Tresiba in 3 days. He has taken metformin a couple times in the last 72 hours. He last ate last night cream to corn, barbecue chicken and rice. He states he did not have any symptoms of hyperglycemia and also did not check his blood sugars. He does have testing supplies at home. He has tried trulicity but there were no changes to glucose levels per pt, diarrhea and dizziness. He states he tolerates ozempic but the higher doses seemed ineffective with his diabetes management and at times irritated his stomach. CGM-he has not been using a CGM. Fam hx of t1dm and t2dm. maternal grandmother has t1dm, cousin has t1dm. siblings have t2dm He has had diabetic Education and understands how to treat low blood sugars. States that he prefers to use orange juice as orange juices 1 of his favorite things to drink. 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 CV: Blood pressure today in the office is 110/76. His cholesterol is supposed to be managed with simvastatin but he states he has not taken this in months. [facility] Medical History Tinea pedis Tinea Obesity due to excess calories Balanitis Other obsessive-compulsive disorder Asthma, exercise induced Type 2 diabetes mellitus with hyperglycemia Surgical History No pertinent past surgical history Family History Father No problems noted. Mother Diabetes mellitus Paternal Grandmother Diabetes mellitus Maternal Grandfather Diabetes mellitus Social History Household Members: Spouse and Children Housing: Apartment Alcohol intake: current Alcohol intake frequency: holidays/special occasions only Alcohol type: hard liquor Patient Tobacco Use Status: Never used Tobacco e-Cigarette/Vaping Use: Never Used Second Hand Smoke Exposure: No service: No Current occupational status: employed Cognitive needs: No Hearing needs: No Vision needs: No Physical Exam Vital Signs: BMI result Body Mass Index 36.1 Const Orientation/consciousness: patient oriented x3 HEENT Ears: hearing grossly normal bilaterally Neck Thyroid: Thyroid normal Lymphatic: no lymphadenopathy noted Resp Auscultation: clear to auscultation bilaterally Cardio Rate: regular rate Rhythm: regular rhythm Heart sounds: S1 normal heart sound present and S2 normal heart sound present Skin General skin exam: no rashes or lesions noted Neuro General: patient oriented x3, gait normal and no focal motor deficits Results Reviewed Results Reviewed: Laboratory Tests 03/21/19 02/17/23 09/09/23 11:40 08:33 07:32 Sodium 137 Potassium 4.3 Chloride 100 Carbon Dioxide 30 H Anion Gap 11 L BUN 11 Creatinine 0.96 Estimated GFR > 60 Fasting Glucose 319 H Estimat Average Glucose 263 Hgb A1c (Clinic) 6.5 H Albumin 4.3 Triglycerides 313 H Cholesterol 194 LDL Cholesterol, Calc 90 HDL Cholesterol 42 Insulin Autoantibody <0.4 ABDIRASHID Antibody <5 09/21/24 13:51 Sodium Potassium Chloride Carbon Dioxide Anion Gap BUN Creatinine Estimated GFR Fasting Glucose Estimat Average Glucose Hgb A1c (Clinic) 12.3 H Albumin Triglycerides Cholesterol LDL Cholesterol, Calc HDL Cholesterol Insulin Autoantibody ABDIRASHID Antibody Assessment & Plan Assessment & Plan (1) Type 2 diabetes mellitus with hyperglycemia: Code(s): E11.65 - Type 2 diabetes mellitus with hyperglycemia Category: Medical Qualifiers: Diabetes mellitus ocean transportation intermediary insulin use: with half-way use Qualified Code(s): E11.65 - Type 2 diabetes mellitus with hyperglycemia; Z79.4 - longterm (current) use of insulin Plan: 65 minutes was spent in [id number] time today discussing the pathophysiology of diabetes, the differences between type 1 and type 2 diabetes and complications associated with diabetes. We discussed that the risks of complications increase with the poor compliance and control of his diabetes. We discussed that he is at increased risk of heart attack, stroke, early , kidney disease, blindness, amputations, infections etc.. Reviewed signs and symptoms of hyper and hypoglycemia that would require emergent medical treatment. We set an alarm on his phone to take the Tresiba every day in the morning as he thinks he would be more compliant with morning dosing. We also discussed taking the metformin at the same time in setting and evening alarm for the metformin dosing. I will start him on Mounjaro. We discussed risks and benefits and adverse effects of this medication including increased risk of nausea, vomiting, pancreatitis. He we will set a weekly alarm on his phone to take this at the same time every week on a day that he thinks he would remember such as Wednesday. -did not tolerate Trulicity and found Ozempic ineffective/hard to tolerate a higher doses Labs ordered today I provided him a [employer] Roe 3+ in the office and applied it to his arm for him. Downloaded the ga for him and reviewed how to use the ga. Short term follow up in 3-4 weeks. Sooner if needed. (2) Obesity due to excess calories: Code(s): E66.09 - Other obesity due to excess calories Category: Medical Qualifiers: Body mass index: BMI 36.0-36.9 Obesity classification: adult class 2 (BMI 35 - 39.9) Serious obesity comorbidity presence: with serious comorbidity Qualified Code(s): E66.01 - Morbid (severe) obesity due to excess calories; Z68.36 - Body mass index [BMI] 36.0-36.9, adult Plan: Advised to make diet and lifestyle modifications. Encouraged him to increase his physical activity. (3) HLD (hyperlipidemia): Code(s): E78.5 - Hyperlipidemia, unspecified Category: Medical Qualifiers: Hyperlipidemia type: mixed hyperlipidemia Qualified Code(s): E78.2 - Mixed hyperlipidemia Plan: Currently controlled with diet as he has been off of simvastatin for months. (4) Insulin dependent type 2 diabetes mellitus: Code(s): E11.9 - Type 2 diabetes mellitus without complications; Z79.4 - technician terminal and repeater (current) use of insulin Category: Medical Plan: As above (5) Noncompliance: Code(s): Z91.199 - Patient's noncompliance with other medical treatment and regimen due to unspecified reason Category: Medical Plan: Discussed he is high risk for significant complications. He is aware of this and was able to reiterate the risks associated with diabetes. Orders: Orders C Peptide Today E11.65 - Type 2 diabetes mellitus with hyperglycemia, E11.9 - Type 2 diabetes mellitus without complications, Z79.4 - technician terminal and repeater (current) use of insulin Islet Cell Antibody Scrn/Titer Today E11.65 - Type 2 diabetes mellitus with hyperglycemia, E11.9 - Type 2 diabetes mellitus without complications, Z79.4 - longterm (current) use of insulin Glutamic acid decarboxylase Ab Today E11.65 - Type 2 diabetes mellitus with hyperglycemia, E11.9 - Type 2 diabetes mellitus without complications, Z79.4 - technician terminal and repeater (current) use of insulin Medications: New blood-glucose sensor (FreeStyle Roe 3 Plus Sensor device) Use daily As directed to monitor glucose 2 ea 5RF E08.29 - Diabetes mellitus due to underlying condition with other diabetic kidney complication, R80.9 - Proteinuria, unspecified, Z79.4 - technician terminal and repeater (current) use of insulin tirzepatide (Mounjaro) 2.5 mg (0.5 mL) subcut QWEEK 2 mL 3RF Refilled insulin degludec (Tresiba FlexTouch U-200 insulin) 80 units (0.4 mL) subcut BEDTIME 30 days 12 mL 3RF E11.65 - Type 2 diabetes mellitus with hyperglycemia, Z79.4 - technician terminal and repeater (current) use of insulin metformin 1,000 mg PO BID 180 tabs 3RF E11.65 - Type 2 diabetes mellitus with hyperglycemia, Z79.4 - longterm (current) use of insulin Coding Level of Care Code Est Pt Level 5 (33904) Complex EM visit Add On G2211 Diagnoses Type 2 diabetes mellitus with hyperglycemia, with long-term current use of insulin E11.65; Z79.4 Diabetes mellitus ocean transportation intermediary insulin use: with half-way use Class 2 severe obesity due to excess calories with serious comorbidity and body mass index (BMI) of 36.0 to 36.9 in adult E66.01; Z68.36 Body mass index: BMI 36.0-36.9 Obesity classification: adult class 2 (BMI 35 - 39.9) Serious obesity comorbidity presence: with serious comorbidity Mixed hyperlipidemia E78.2 Hyperlipidemia type: mixed hyperlipidemia Insulin dependent type 2 diabetes mellitus E11.9; Z79.4 Noncompliance Z91.199
[2024-09-25 09:05] VITALS: BP 110/76; PULSE 88; O2SAT 98; BMI 36.1
[2024-09-25 09:17] LABS: Glucose, Whole Blood 302 mg/dL (60-115)
== END 2024-09-25 09:49 | disposition home or self-care (01) ==
LOC: HO.ENCR 08:58
PROVIDERS: PCP Physician Assistant; Visit Provider Physician Assistant
DX: E11.65 Type 2 diabetes mellitus with hyperglycemia (principal); Z79.4 Long term (current) use of insulin; E66.01 Morbid (severe) obesity due to excess calories; Z68.36 Body mass index [BMI] 36.0-36.9, adult; E78.2 Mixed hyperlipidemia; E11.9 Type 2 diabetes mellitus without complications; Z91.199 Patient's noncompliance with other medical treatment and regimen due to unspecified reason

== ENCOUNTER → 2024-09-25 08:57 | Outpatient (BNVA) | payer OTHER, SELFPAY | PROVIDERS: PCP Physician Assistant; Visit Provider Physician Assistant | DX: E11.65 Type 2 diabetes mellitus with hyperglycemia (principal); E66.01 Morbid (severe) obesity due to excess calories; Z68.36 Body mass index [BMI] 36.0-36.9, adult; E78.2 Mixed hyperlipidemia; Z91.199 Patient's noncompliance with other medical treatment and regimen due to unspecified reason; Z79.4 Long term (current) use of insulin | CPT/HCPCS: 82947; 99212 ==

== ENCOUNTER 2024-09-28 10:00 | Outpatient (REF) | payer OTHER, SELFPAY ==
[2024-09-28 11:37] LABS: Hematocrit 47.1 % (42.0-52.0); Hemoglobin 15.9 g/dl (14.0-18.0); Mean Corpuscular HGB Conc 33.8 g/dl (31.0-36.0); Mean Corpuscular Hemoglobin 30.8 pg (27.0-33.0); Mean Corpuscular Volume 91.1 fL (80.0-98.0); Mean Platelet Volume 12.5 fL (9.4-12.4); Platelet Count 186 X10*3/uL (160-400); Red Blood Count 5.17 X10*6/uL (4.60-5.80); Red Cell Distribution Width 12.8 % (11.0-16.0); White Blood Count 8.6 X10*3/uL (4.8-10.8)
[2024-09-28 12:07] LABS: Creatinine Urine 201.87 mg/dL; Microalbum/Creatinine Ratio Ur 6.4 ug/mg cr (<30)
[2024-09-28 12:16] LABS: Alanine Aminotransferase 18 U/L (0-40); Albumin Level 4.1 g/dL (3.5-5.0); Alkaline Phosphatase 93 U/L (39-117); Anion Gap 11 (12-20); Aspartate Amino Transferase 15 U/L (5-37); Bilirubin Total 1.3 mg/dL (0.0-1.0); Blood Urea Nitrogen 17 mg/dL (9-16); Calcium 9.2 mg/dL (8.4-10.2); Carbon Dioxide 28 mmol/L (22-29); Chloride 108 mmol/L (96-108); Cholesterol 171 mg/dL (<200); Estimated Glomerular Filt Rate > 60; Glucose Fasting 177 mg/dL (60-99); HDL Cholesterol 46 mg/dL (>40); LDL Cholesterol Calculated 115 mg/dL (<100); Potassium 4.7 mmol/L (3.3-5.1); Sodium 142 mmol/L (135-145); Total Protein 6.9 g/dL (6.5-8.0); Triglycerides 53 mg/dL (<150)
[2024-09-29 10:43] LABS: C Peptide 1.71 ng/mL (0.80-3.85)
[2024-10-03 23:08] LABS: Islet Cell Antibody Screen NEGATIVE (NEGATIVE)
[2024-10-05 20:39] LABS: Glutamic acid decarboxylase Ab <5 IU/mL (<5)
== END 2024-09-28 10:01 | disposition home or self-care (01) ==
LOC: HO.LAB 10:00
PROVIDERS: Absent Provider Physician Assistant; PCP Physician Assistant; Visit Provider Physician Assistant
DX: E11.65 Type 2 diabetes mellitus with hyperglycemia (principal); Z79.4 Long term (current) use of insulin; E78.2 Mixed hyperlipidemia; E11.9 Type 2 diabetes mellitus without complications
CPT/HCPCS: 36415; 80053; 80061; 82043; 82570; 84681; 85027; 86341

== ENCOUNTER 2024-10-04 09:12 | Outpatient (AMB) | payer OTHER, SELFPAY ==
--- NOTE | 2024-10-04 09:14 | MHC.PC.OV ---
Vital Signs 10/04/24 09:15 Height 5 ft 3 in Weight 202 lb 2 oz BMI 35.8 BP 102/72 Blood Pressure Location Lt brachial Position Sitting Pulse 56 Pulse Source Pulse Oximeter Temp 97.3 F Temp Source Temporal Artery Scan Pulse Oximetry (%) 98 Oxygen Delivery Method Room Air Intake Visit Reasons: DM Publications Manager Required: No Accompanied by: Self / Same As Patient Allergies No Known Allergies [No Known Allergies*] Allergy (Verified 10/04/24 09:29) Medication List - Last Reconciled 10/04/24 by Eduardo Sheldon PA-C albuterol sulfate 90 mcg/actuation 1 inh inhalation QID PRN 30 days alcohol swabs (Alcohol Prep Pads) 1 pad topical DAILY 90 days blood sugar diagnostic As directed blood sugar diagnostic (FreeStyle Lite Strips) As directed three times a day blood-glucose meter (FreeStyle Lite Meter kit) As directed blood-glucose meter,continuous (FreeStyle Roe 3 [place]) As directed blood-glucose sensor (FreeStyle Roe 3 Plus Sensor device) Use daily As directed to monitor glucose bupropion HCl XL 150 mg PO QAM 90 days clotrimazole 1% 1 appl topical BID diclofenac sodium 50 mg PO BID PRN 10 days gabapentin 100 mg PO BID insulin degludec (Tresiba FlexTouch U-200 insulin) 80 units (0.4 mL) subcut BEDTIME 30 days lancets (FreeStyle Lancets) Three times a day metformin 1,000 mg PO BID pen needle, diabetic As directed once daily tirzepatide (Mounjaro) 2.5 mg (0.5 mL) subcut QWEEK Tobacco use date assessed: 09/21/24 Dental Screening Dental Screen Date: 09/21/24 HPI DM HPI Details Patient is a 24-year-old male here today for a follow-up visit. Patient has a past medical history significant for type 2 diabetes, obesity, asthma, Concern--> has been dealing with anxiety and depression due to not having a job. 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 Unable to get car due to uncontrolled diabetes and on insulin regime. Unfortunately lost follow-up with his associate music professor as his diabetes was controlled in the summer of 2022. ... Type 2 diabetes: He has reestablish care with his associate music professor, most recent fasting blood sugar has improved to 177. Patient's type 2 diabetes suboptimally controlled, has not been too compliant with his medication and reports he has had trouble with insurance due to changing jobs, the patient exhibits a Hemoglobin A1c level at 12, significantly exceeding target levels for adequate disease control. He has escalated recently from 58 to 80 units of Tresiba, has been noted in efforts to manage hyperglycemic episodes amid reduced physical activity. His associate music professor has tried to start monitor oral though was the low waiting insurance coverage. . Obesity: Patient does understand his BMI is over 30 and has been working on better eating habits and being more physically active to reduce his weight. .. [facility] Medical History Tinea pedis Tinea Obesity due to excess calories Balanitis Other obsessive-compulsive disorder Asthma, exercise induced Type 2 diabetes mellitus with hyperglycemia Surgical History No pertinent past surgical history Family History Father No problems noted. Mother Diabetes mellitus Paternal Grandmother Diabetes mellitus Maternal Grandfather Diabetes mellitus Social History Household Members: Spouse and Children Housing: Apartment Alcohol intake: current Alcohol intake frequency: holidays/special occasions only Alcohol type: hard liquor Patient Tobacco Use Status: Never used Tobacco e-Cigarette/Vaping Use: Never Used Second Hand Smoke Exposure: No service: No Current occupational status: employed Cognitive needs: No Hearing needs: No Vision needs: No Questionnaire Thrive Questionnaire Date Thrive assessed: 09/21/24 ABDIRASHID-7 AMB Questionnaire ABDIRASHID-7 Date ABDIRASHID - 7 assessed: 09/21/24 Source: Developed by Drs. Iftikhar Yen, Analy Kenny, Saulo Martinez and colleagues, with an educational brigette from [employer]. Review of Systems Const Denies headache(s) Eyes Denies loss of vision ENT Denies vertigo, Denies dizziness, Denies headache(s) and Denies sore throat Card Denies chest pain, Denies leg edema and Denies lightheadedness Resp Denies cough, Denies hemoptysis and Denies wheezing GI Denies abdominal pain, Denies melena, Denies constipation, Denies diarrhea and Denies vomiting Denies dysuria, Denies urinary frequency and Denies urinary urgency Musc Denies arthralgias, Denies joint swelling, Denies numbness and Denies tingling Neuro Denies Abnormal speech present, Denies behavioral changes, Denies vertigo, Denies dizziness, Denies headache(s), Denies loss of vision, Denies memory loss, Denies numbness and Denies tingling Psych Denies anxiety, Denies behavioral changes, Denies depression, Denies memory loss and Denies panic attacks Cristino/Lymph Denies easy bleeding and Denies easy bruising Aller/Immun Denies wheezing Physical exam (Primary Care) Vital Signs: Last Vital Signs Temp 97.3 F 10/04/24 09:15 Pulse 56 10/04/24 09:15 BP 102/72 10/04/24 09:15 Pulse Ox 98 10/04/24 09:15 Oxygen Delivery Method Room Air 10/04/24 09:15 BMI result Body Mass Index 35.8 Tobacco/Smoking Status: Tobacco use Status Tobacco use date assessed 09/21/24 10/04/24 09:17 Patient Tobacco Use Status Never used Tobacco 10/04/24 09:17 e-Cigarette/Vaping Use Never Used 10/04/24 09:17 Thrive Assessment: Date of Thrive Assessment Date Thrive assessed 09/21/24 10/04/24 09:17 Const General: healthy appearing, no acute distress, alert and awake Nutritional Appearance: well nourished Orientation/consciousness: oriented to person, oriented to place and oriented to time HENMT Ears: TM's normal bilaterally General nose exam: Normal nasal mucous membranes and turbinates present Eyes Conjunctivae: conjunctivae normal Sclerae: sclerae normal Pupils: Equal, round and reactive pupils present Neck Neck: Yes no lymphadenopathy and Yes no JVD Thyroid: Thyroid normal Carotids: no bruits Resp Effort & Inspection: normal respiratory effort and not tachypneic Auscultation: no crackles, no rales, no rhonchi and no wheezes Cardio Rate: regular rate Rhythm: regular rhythm Heart sounds: no murmurs and normal S1 and S2 GI Palpation (GI): Soft to palpation, nontender, no hepatomegaly and no splenomegaly Auscultation: normal bowel sounds Skin General skin exam: no rashes or lesions noted and dry skin Neuro General: oriented to person, oriented to place and oriented to time Cranial nerves: Yes Equal, round and reactive pupils present Speech: No Abnormal speech present Gait exam (Neuro): Normal gait present Motor exam (neuro): no tremor noted Extrem Right upper extremity: full ROM Left upper extremity: full ROM Right lower extremity: full ROM; no edema Left lower extremity: full ROM; no edema Psych Mental Status: mental status grossly normal Speech and movement: Normal speech and movement present Affect: normal affect Attitude: cooperative Thought process: Normal thought process present Coding Level of Care Code Est Pt Level 4 (58893) Diagnoses Type 2 diabetes mellitus with hyperglycemia, with long-term current use of insulin E11.65; Z79.4 Diabetes mellitus terminal gauger supervisor insulin use: with skilled nursing use Mixed hyperlipidemia E78.2 Hyperlipidemia type: mixed hyperlipidemia Class 1 obesity E66.811 Assessment & Plan Assessment & Plan (1) Type 2 diabetes mellitus with hyperglycemia: Code(s): E11.65 - Type 2 diabetes mellitus with hyperglycemia Category: Medical Qualifiers: Diabetes mellitus terminal gauger supervisor insulin use: with skilled nursing use Qualified Code(s): E11.65 - Type 2 diabetes mellitus with hyperglycemia; Z79.4 - terminal gauger supervisor (current) use of insulin Plan: Has restarted his diabetic medication. Continues on Tresiba 80 units and metformin 1000 b.i.d.. His an associate music professor has started monitor although is awaiting insurance coverage. Address inadequate glycemic control with optimized Tresiba dosage, integrate Freestyle Roe CGM for better monitoring, and ensure endocrinological follow-up. Goal A1c is to be below 7.0 (2) HLD (hyperlipidemia): Code(s): E78.5 - Hyperlipidemia, unspecified Category: Medical Qualifiers: Hyperlipidemia type: mixed hyperlipidemia Qualified Code(s): E78.2 - Mixed hyperlipidemia Plan: Will recheck fasting lipid panel showing LDL above goal 100. Will start atorvastatin 10 mg to reduce cholesterol and LDL. . Goal LDL is to be below 100 (3) Class 1 obesity: Code(s): E66.811 - Obesity, class 1 Category: Medical Plan: Patient does understand his BMI is over 30 will work on being more physically active and adapting to better eating habits to reduce his weight Orders: Orders Lipid Panel Today E78.2 - Mixed hyperlipidemia Comprehensive [place]. Panel Fast Today E11.65 - Type 2 diabetes mellitus with hyperglycemia, Z79.4 - terminal gauger supervisor (current) use of insulin Complete Blood Count no Diff Today E11.65 - Type 2 diabetes mellitus with hyperglycemia, Z79.4 - detention (current) use of insulin Medications: New atorvastatin 10 mg PO DAILY 90 tabs 1RF 90 days E78.2 - Mixed hyperlipidemia Refilled blood sugar diagnostic (FreeStyle Lite Strips) As directed three times a day 100 ea 6RF E11.65 - Type 2 diabetes mellitus with hyperglycemia, Z79.4 - terminal gauger supervisor (current) use of insulin
[2024-10-04 09:15] VITALS: BP 102/72; PULSE 56; TEMP 36.3; O2SAT 98; BMI 35.8
== END 2024-10-04 09:41 | disposition home or self-care (01) ==
LOC: HO.HMCH 09:13
PROVIDERS: PCP Physician Assistant; Visit Provider Physician Assistant
DX: E11.65 Type 2 diabetes mellitus with hyperglycemia (principal); Z79.4 Long term (current) use of insulin; E66.811 Obesity, class 1; Z68.35 Body mass index [BMI] 35.0-35.9, adult; E78.2 Mixed hyperlipidemia

== ENCOUNTER → 2024-10-04 09:12 | Outpatient (BNVA) | payer OTHER, SELFPAY | PROVIDERS: PCP Physician Assistant; Visit Provider Physician Assistant | DX: E11.65 Type 2 diabetes mellitus with hyperglycemia (principal); Z79.4 Long term (current) use of insulin; E78.2 Mixed hyperlipidemia; E66.811 Obesity, class 1 | CPT/HCPCS: 99212 ==

== ENCOUNTER 2024-10-16 07:43 | Outpatient (AMB) | payer OTHER, SELFPAY ==
--- NOTE | 2024-10-16 07:47 | A.OFFVIS_ITS ---
Vital Signs 10/16/24 07:48 Height 5 ft 3 in Weight 209 lb 10.554 oz BMI 37.1 BP 124/96 H Blood Pressure Location Lt brachial Position Sitting Pulse 68 Pulse Source Pulse Oximeter Pulse Oximetry (%) 97 Oxygen Delivery Method Room Air Intake Visit Reasons: T2DM Intake Note: Patient present today for Type 2 Diabetes Mellitus Last Diabetic eye exam: 09/2023 Last Podiatry Visit: Doesn't have one Random Glucose: 236 mg/dl HgA1C: 12.3% 09/21/24 Clinical Practitioner Required: No Accompanied by: Self / Same As Patient Allergies No Known Allergies [No Known Allergies*] Allergy (Verified 10/16/24 07:55) Medication List - Last Reconciled 10/16/24 by Maty Workman PA-C albuterol sulfate 90 mcg/actuation 1 inh inhalation QID PRN 30 days alcohol swabs (Alcohol Prep Pads) 1 pad topical DAILY 90 days atorvastatin 10 mg PO DAILY 90 days blood sugar diagnostic As directed blood sugar diagnostic (FreeStyle Lite Strips) As directed three times a day blood-glucose meter (FreeStyle Lite Meter kit) As directed blood-glucose sensor (FreeStyle Roe 3 Plus Sensor device) Use daily As dir ected to monitor glucose blood-glucose,soil checker,cont (FreeStyle Roe 3 [place]) As directed bupropion HCl XL 150 mg PO QAM 90 days clotrimazole 1% 1 appl topical BID diclofenac sodium 50 mg PO BID PRN 10 days gabapentin 100 mg PO BID insulin degludec (Tresiba FlexTouch U-200 insulin) 80 units (0.4 mL) subcut BEDTIME 30 days lancets (FreeStyle Lancets) Three times a day metformin 1,000 mg PO BID pen needle, diabetic As directed once daily tirzepatide (Mounjaro) 2.5 mg (0.5 mL) subcut QWEEK HPI HPI T2DM: Details: Patient is a 24-year-old male with a significant past medical history of anxiety, depression, OCD, type 2 diabetes, obesity and hyperlipidemia presenting today for a diabetic consultation. Endo: He was diagnosed with type 2 diabetes around 2019. His last A1c was 12. He was supposed to be on mounjaro but never picked this up. He is using Tresiba 80 units every few days when he remembers. He is compliant with the metformin 1000 mg BID. He has tried trulicity but there were no changes to glucose levels per pt, diarrhea and dizziness. He states he tolerates ozempic but the higher doses seemed ineffective with his diabetes management and at times irritated his stomach. CGM-he was given this at last office visit. He is using it 96% of the time. Average glucose 333, Gmi 11.3%, glucose variability 20%. Very hyperglycemic 88%, hyperglycemic 9%, in range 3%, 0% hypoglycemia Fam hx of t1dm and t2dm. maternal grandmother has t1dm, cousin has t1dm. siblings have t2dm He has had diabetic Education and understands how to treat low blood sugars. States that he prefers to use orange juice as orange juices 1 of his favorite t hings to drink. 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 CV: Blood pressure today in the office is 124/96. He is recently on atorvastatin. Last LDL 115. [facility] Medical History Tinea pedis Tinea Obesity due to excess calories Balanitis Other obsessive-compulsive disorder Asthma, exercise induced Type 2 diabetes mellitus with hyperglycemia Surgical History No pertinent past surgical history Family History Father No problems noted. Mother Diabetes mellitus Paternal Grandmother Diabetes mellitus Maternal Grandfather Diabetes mellitus Social History Household Members: Spouse and Children Housing: Apartment Alcohol intake: current Alcohol intake frequency: holidays/special occasions only Alcohol type: hard liquor Patient Tobacco Use Status: Never used Tobacco e-Cigarette/Vaping Use: Never Used Second Hand Smoke Exposure: No service: No Current occupational status: employed Cognitive needs: No Hearing needs: No Vision needs: No Physical Exam Vital Signs: Last Vital Signs Pulse 68 10/16/24 07:48 BP 124/96 H 10/16/24 07:48 Pulse Ox 97 10/16/24 07:48 Oxygen Delivery Method Room Air 10/16/24 07:48 BMI result Body Mass Index 37.1 Const Orientation/consciousness: patient oriented x3 Neck Neck: Yes no lymphadenopathy Thyroid: Thyroid normal Carotids: no bruits Resp Auscultation: clear to auscultation bilaterally Cardio Rate: regular rate Rhythm: regular rhythm Heart sounds: S1 normal heart sound present and S2 normal heart sound present Peripheral pulses: dorsalis pedis present Neuro General: patient oriented x3, gait normal and no focal motor deficits Extrem Other: Monofilament sensation intact bilaterally. Vibratory sensation intact bilaterally. Skin intact. Tinea pedis noted. There is some weight, flaking skin noted between the toes and on the bottom of the feet. General: Yes normal to inspection Results Reviewed Results Reviewed: Laboratory Last Values Glucose (Clinic) 236 mg/dL (60-115) H 10/16/24 07:57 Laboratory Tests 09/28/24 09/28/24 10/16/24 10:36 10:38 07:57 Sodium 142 Potassium 4.7 Chloride 108 Carbon Dioxide 28 Anion Gap 11 L BUN 17 H Creatinine 0.80 Estimated GFR > 60 Glucose (Clinic) 236 H Fasting Glucose 177 H AST 15 ALT 18 Alkaline Phosphatase 93 Triglycerides 53 Cholesterol 171 LDL Cholesterol, Calc 115 H HDL Cholesterol 46 Urine Creatinine 201.87 Urine Microalbumin 13.0 Microalb/Creat Ratio 6.4 Islet Cell Ab Screen NEGATIVE ABDIRASHID Antibody <5 Assessment & Plan Assessment & Plan (1) Insulin dependent type 2 diabetes mellitus: Code(s): E11.9 - Type 2 diabetes mellitus without complications; Z79.4 - terminal operations supervisor (current) use of insulin Category: Medical Plan: Discussed the importance of compliance at length. We reviewed complications associated with diabetes including his increased risk of a stroke, heart attack, blindness, early , infections, amputations, neuropathy, need for dialysis etc.. He has set an alarm on his phone to hopefully be more compliant with his insulin regimen. I have increased the Tresiba 90 units. We will start Humalog 5 units with meals. He tells me he thinks that this would be manageable. I have recent in the [facility]. He will start taking this. Continue with the metformin. Return in a few weeks to be reassessed. Sooner if needed. (2) Type 2 diabetes mellitus with hyperglycemia: Code(s): E11.65 - Type 2 diabetes mellitus with hyperglycemia Category: Medical Qualifiers: Diabetes mellitus fpc insulin use: with fpc use Qualified Code(s): E11.65 - Type 2 diabetes mellitus with hyperglycemia; Z79.4 - terminal operations supervisor (current) use of insulin Plan: As listed above. (3) Tinea pedis: Code(s): B35.3 - Tinea pedis Category: Medical Plan: Clotrimazole ordered today. Advised to keep his feet clean and dry. Discussed the importance of monitoring diabetes. Medications: New clotrimazole 1% 1 appl topical BID 4 weeks 45 grams 3RF insulin lispro (Humalog KwikPen (U-100) Insulin) with lunch and dinner 5 units (0.05 mL) subcut BID 15 mL 2RF Changed From insulin degludec (Tresiba FlexTouch U-200 insulin) 80 units (0.4 mL) subcut BEDTIME 30 days 12 mL 3RF E11.65 - Type 2 diabetes mellitus with hyperglycemia, Z79.4 - terminal operations supervisor (current) use of insulin To insulin degludec (Tresiba FlexTouch U-200 insulin) 90 units (0.45 mL) subcut BEDTIME 30 days 18 mL 3RF E11.65 - Type 2 diabetes mellitus with hyperglycemia, Z79.4 - terminal operations supervisor (current) use of insulin Refilled tirzepatide (Mounjaro) 2.5 mg (0.5 mL) subcut QWEEK 2 mL 3RF Coding Level of Care Code Est Pt Level 4 (13440) Complex EM visit Add On G2211 Diagnoses Insulin dependent type 2 diabetes mellitus E11.9; Z79.4 Type 2 diabetes mellitus with hyperglycemia, with long-term current use of insulin E11.65; Z79.4 Diabetes mellitus fpc insulin use: with laborer marine terminal use Tinea pedis B35.3
[2024-10-16 07:48] VITALS: BP 124/96; PULSE 68; O2SAT 97; BMI 37.1
[2024-10-16 08:00] LABS: Glucose, Whole Blood 236 mg/dL (60-115)
== END 2024-10-16 08:22 | disposition home or self-care (01) ==
LOC: HO.ENCR 07:44
PROVIDERS: PCP Physician Assistant; Visit Provider Physician Assistant
DX: E11.9 Type 2 diabetes mellitus without complications (principal); Z79.4 Long term (current) use of insulin; E11.65 Type 2 diabetes mellitus with hyperglycemia; B35.3 Tinea pedis

== ENCOUNTER → 2024-10-16 07:43 | Outpatient (BNVA) | payer OTHER, SELFPAY | PROVIDERS: PCP Physician Assistant; Visit Provider Physician Assistant | DX: E11.65 Type 2 diabetes mellitus with hyperglycemia (principal); Z79.4 Long term (current) use of insulin; B35.3 Tinea pedis | CPT/HCPCS: 82947; 99212 ==

== ENCOUNTER 2024-11-17 07:58 | Outpatient (AMB) | payer OTHER, SELFPAY ==
[2024-11-17 08:07] VITALS: BP 104/74; PULSE 76; BMI 38.9
--- NOTE | 2024-11-17 08:07 | A.OFFVIS_ITS ---
Vital Signs 11/17/24 08:07 Height 5 ft 3 in Weight 219 lb 5.759 oz BMI 38.9 BP 104/74 Blood Pressure Location Rt brachial Position Sitting Pulse 76 Pulse Source Pulse Oximeter Intake Visit Reasons: T2DM Intake Note: Patient present today for Type 2 Diabetes Mellitus Last Diabetic eye exam: 09/2023 Last Podiatry Visit: Doesn't have one Random Glucose: 147 mg/dl HgA1C: 12.3% 09/21/24 Banking Attorney Required: No Accompanied by: Self / Same As Patient Allergies No Known Allergies [No Known Allergies*] Allergy (Verified 11/17/24 08:12) Medication List - Last Reconciled 11/17/24 by Maty Workman PA-C albuterol sulfate 90 mcg/actuation 1 inh inhalation QID PRN 30 days alcohol swabs (Alcohol Prep Pads) 1 pad topical DAILY 90 days atorvastatin 10 mg PO DAILY 90 days blood sugar diagnostic As directed blood sugar diagnostic (FreeStyle Lite Strips) As directed three times a day blood-glucose meter (FreeStyle Lite Meter kit) As directed blood-glucose sensor (FreeStyle Roe 3 Plus Sensor device) Use daily As directed to monitor glucose blood-glucose,foundry worker general,cont (FreeStyle Roe 3 [place]) As directed bupropion HCl XL 150 mg PO QAM 90 days clotrimazole 1% 1 appl topical BID clotrimazole 1% 1 appl topical BID 4 weeks diclofenac sodium 50 mg PO BID PRN 10 days gabapentin 100 mg PO BID insulin degludec (Tresiba FlexTouch U-200 insulin) 90 units (0.45 mL) subcut BEDTIME 30 days insulin lispro (Humalog KwikPen (U-100) Insulin) 5 units (0.05 mL) subcut BID lancets (FreeStyle Lancets) Three times a day metformin 1,000 mg PO BID pen needle, diabetic As directed once daily tirzepatide (Mounjaro) 2.5 mg (0.5 mL) subcut QWEEK HPI HPI T2DM: Details: Patient is a 24-year-old male with a significant past medical history of anxiety, depression, OCD, type 2 diabetes, obesity and hyperlipidemia presenting today for a diabetic consultation. Endo: He was diagnosed with type 2 diabetes around 2019. His last A1c was 12. He is on Tresiba 90 units, humalog 5 units with meals, mounjaro 2.5 mg weekly, and metformin 1000 mg bid. He has tried trulicity but there were no changes to glucose levels per pt, diarrhea and dizziness. He states he tolerates ozempic but the higher doses seemed ineffective with his diabetes management and at times irritated his stomach. CGM-he was given this at last office visit. He is using it 78% of the time. Gmi 6.7%, glucose variability 26%. Very hyperglycemic 1%, hyperglycemic 18%, in range 89%, 0% hypoglycemia Fam hx of t1dm and t2dm. maternal grandmother has t1dm, cousin has t1dm. sibli ngs have t2dm He has had diabetic Education and understands how to treat low blood sugars. States that he prefers to use orange juice as orange juices 1 of his favorite things to drink. 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 CV: Blood pressure today in the office is 104/74. He is recently on atorvastatin but tells me he never takes it because he forgets. Last LDL 115. [facility] Medical History Tinea pedis Tinea Obesity due to excess calories Balanitis Other obsessive-compulsive disorder Asthma, exercise induced Type 2 diabetes mellitus with hyperglycemia Surgical History No pertinent past surgical history Family History Father No problems noted. Mother Diabetes mellitus Paternal Grandmother Diabetes mellitus Maternal Grandfather Diabetes mellitus Social History Household Members: Spouse and Children Housing: Apartment Alcohol intake: current Alcohol intake frequency: holidays/special occasions only Alcohol type: hard liquor Patient Tobacco Use Status: Never used Tobacco e-Cigarette/Vaping Use: Never Used Second Hand Smoke Exposure: No service: No Current occupational status: employed Cognitive needs: No Hearing needs: No Vision needs: No Physical Exam Vital Signs: Last Vital Signs Pulse 76 11/17/24 08:07 BP 104/74 11/17/24 08:07 BMI result Body Mass Index 38.9 Const Orientation/consciousness: patient oriented x3 HEENT Ears: hearing grossly normal bilaterally Neck Thyroid: Thyroid normal Lymphatic: no lymphadenopathy noted Resp Auscultation: clear to auscultation bilaterally Cardio Rate: regular rate Rhythm: regular rhythm Heart sounds: S1 normal heart sound present and S2 normal heart sound present Skin General skin exam: no rashes or lesions noted Neuro General: patient oriented x3, gait normal and no focal motor deficits Results Reviewed Results Reviewed: Laboratory Tests 09/28/24 10/16/24 10:38 07:57 WBC 8.6 RBC 5.17 Hgb 15.9 Hct 47.1 Plt Count 186 Creatinine 0.80 Estimated GFR > 60 Glucose (Clinic) 236 H AST 15 ALT 18 Alkaline Phosphatase 93 Triglycerides 53 Cholesterol 171 LDL Cholesterol, Calc 115 H HDL Cholesterol 46 Assessment & Plan Assessment & Plan (1) Insulin dependent type 2 diabetes mellitus: Code(s): E11.9 - Type 2 diabetes mellitus without complications; Z79.4 - senior living (current) use of insulin Category: Medical Plan: reduce tresiba to 80 units increase mounjaro to 5 mg weekly continue metformin continue humalog with large meals (2) Type 2 diabetes mellitus with hyperglycemia: Code(s): E11.65 - Type 2 diabetes mellitus with hyperglycemia Category: Medical Qualifiers: Diabetes mellitus custodial insulin use: with custodial use Qualified Code(s): E11.65 - Type 2 diabetes mellitus with hyperglycemia; Z79.4 - senior living (current) use of insulin Plan: significantly improved (3) HLD (hyperlipidemia): Code(s): E78.5 - Hyperlipidemia, unspecified Category: Medical Qualifiers: Hyperlipidemia type: mixed hyperlipidemia Qualified Code(s): E78.2 - Mixed hyperlipidemia Plan: will check labs off of atorvastatin. d/c'd on his own Orders: Orders Comprehensive Met. Panel Today E11.65 - Type 2 diabetes mellitus with hyperglycemia, E11.9 - Type 2 diabetes mellitus without complications, E78.2 - Mixed hyperlipidemia, Z79.4 - senior living (current) use of insulin Hemoglobin A1c Today E11.65 - Type 2 diabetes mellitus with hyperglycemia, E11.9 - Type 2 diabetes mellitus without complications, E78.2 - Mixed hyperl ipidemia, R73.01 - Impaired fasting glucose, Z79.4 - termite renewal inspector (current) use of insulin Lipid Panel Today E11.65 - Type 2 diabetes mellitus with hyperglycemia, E11.9 - Type 2 diabetes mellitus without complications, E78.2 - Mixed hyperlipidemia, Z79.4 - termite renewal inspector (current) use of insulin Microalbumin, Random (w Creat) Today E11.65 - Type 2 diabetes mellitus with hyperglycemia, E11.9 - Type 2 diabetes mellitus without complications, E78.2 - Mixed hyperlipidemia, Z79.4 - termite renewal inspector (current) use of insulin Medications: New tirzepatide (Mounjaro) 5 mg (0.5 mL) subcut QWEEK 2 mL 4RF Changed From insulin degludec (Tresiba FlexTouch U-200 insulin) 90 units (0.45 mL) subcut BEDTIME 30 days 18 mL 3RF E11.65 - Type 2 diabetes mellitus with hyperglycemia, Z79.4 - senior living (current) use of insulin To insulin degludec (Tresiba FlexTouch U-200 insulin) 80 units (0.4 mL) subcut BEDTIME 30 days 12 mL 3RF E11.65 - Type 2 diabetes mellitus with hyperglycemia, Z79.4 - senior living (current) use of insulin Discontinued tirzepatide (Mounjaro) Discontinued Reason: Doctor's Order 2.5 mg (0.5 mL) subcut QWEEK 2 mL 3RF Patient Instructions: labs prior to appointment decrease tresiba to 80 units increase mounjaro to 5 mg continue metformin and humalog Coding Level of Care Code Est Pt Level 4 (05149) Complex EM visit Add On G2211 Diagnoses Insulin dependent type 2 diabetes mellitus E11.9; Z79.4 Type 2 diabetes mellitus with hyperglycemia, with long-term current use of insulin E11.65; Z79.4 Diabetes mellitus termite renewal inspector insulin use: with termite renewal inspector use Mixed hyperlipidemia E78.2 Hyperlipidemia type: mixed hyperlipidemia
[2024-11-17 08:17] LABS: Glucose, Whole Blood 147 mg/dL (60-115)
== END 2024-11-17 08:30 | disposition home or self-care (01) ==
LOC: HO.ENCR 07:59
PROVIDERS: PCP Physician Assistant; Visit Provider Physician Assistant
DX: E11.9 Type 2 diabetes mellitus without complications (principal); Z79.4 Long term (current) use of insulin; E11.65 Type 2 diabetes mellitus with hyperglycemia; E78.2 Mixed hyperlipidemia

== ENCOUNTER → 2024-11-17 07:58 | Outpatient (BNVA) | payer OTHER, SELFPAY | PROVIDERS: PCP Physician Assistant; Visit Provider Physician Assistant | DX: E11.65 Type 2 diabetes mellitus with hyperglycemia (principal); F41.9 Anxiety disorder, unspecified; F32.A Depression, unspecified; F42.9 Obsessive-compulsive disorder, unspecified; E66.9 Obesity, unspecified; E78.2 Mixed hyperlipidemia; Z68.38 Body mass index [BMI] 38.0-38.9, adult; Z79.4 Long term (current) use of insulin | CPT/HCPCS: 82947; 99212 ==